=== PATIENT | female | born 1950 | race Caucasian/White ===

== ENCOUNTER → 2017-04-30 17:04 | Outpatient (CLI) | payer BC, SELFPAY ==
[2017-04-30 17:27] LABS: Basophils % 0.5 % (0.1-2.0); Eosinophils # 0.1 K/mm3 (0.0-0.4); Hematocrit 42.8 % (37.0-47.0); Hemoglobin 13.6 g/dL (12.2-16.2); Lymphocytes % 32.2 K/mm3 (10-50); Mean Corpuscular HGB Conc 31.7 g/dL (31.8-35.4); Mean Corpuscular Volume 88.2 fl (81-99); Mean Platelet Volume 7.9 fl (7.4-10.4); Monocytes # 0.3 K/mm3 (0.1-1.0); Monocytes % 4.6 % (1.7-9.3); Neutrophils # 3.8 K/mm3 (1.8-7.8); Neutrophils % 60.8 % (37.0-80.0); Platelet Count 259 K/mm3 (142-424); Red Blood Count 4.86 M/mm3 (4.20-5.40); White Blood Count 6.2 K/mm3 (4.8-10.8)
[2017-04-30 20:26] LABS: Troponin I < 0.02 ng/ml (0.00-0.06)
[2017-04-30 20:31] LABS: Alanine Aminotransferase 16 U/L (12-78); Albumin Level 3.9 gm/dL (3.4-5.0); Albumin/Globulin Ratio 1.6 (1.1-1.8); Alkaline Phosphatase 48 U/L (46-116); Anion Gap 15.1 mEq/L (5-15); Aspartate Amino Transferase 14 U/L (15-37); Bilirubin,Total 0.2 mg/dL (0.2-1.0); Blood Urea Nitrogen 19 mg/dL (7-18); Calcium 9.3 mg/dL (8.5-10.1); Carbon Dioxide 25 mmol/L (21.0-32.0); Chloride 104 mmol/L (98-107); Creatinine,Serum 0.75 mg/dL (0.55-1.02); Estimated Glomerular Filt Rate > 60 ml/min (>60); GFR (African American) > 60 ML/MIN (>60); Globulin 2.5 gm/dl (1.3-3.2); Glucose 109 mg/dL (74-106); Magnesium 1.6 mg/dL (1.4-2.2); Potassium 5.1 mmoL/L (3.5-5.1); Sodium 139 mmol/L (136-145); Thyroid Stimulating Hormone 1.41 uIU/ml (0.358-3.740); Total Protein,Serum 6.4 gm/dL (6.4-8.2)
== END ==
PROVIDERS: PCP Nurse Practitioner Family; Visit Provider Nurse Practitioner Family
DX: R06.02 Shortness of breath (principal); R53.83 Other fatigue; R94.31 Abnormal electrocardiogram [ECG] [EKG]
CPT/HCPCS: 36415; 80053; 83735; 84443; 84484; 85025

== ENCOUNTER → 2017-05-17 07:19 | Outpatient (CLI) | payer BC, SELFPAY ==
--- NOTE | 2017-05-17 07:24 | NM_ITS ---
History and Indications: Hypertension, diabetes, hyperlipidemia, family history, shortness of breath and palpitations Procedure: Patient received a 0.4 mg of Lexiscan, resting heart rate was 60 beats per, resting blood pressure 133/66, with Lexiscan maximum heart rate achieved was 95 bpm is less than 85% of the maximum predicted heart rate and a blood pressure 120/60. With Lexiscan patient under shortness of breath. Electrocardiogram: Resting electrocardiogram showed sinus rhythm, with Lexiscan there is less than 1.[address] segment depression noted from the baseline EKG. The EKG portion of the Lexiscan Myoview is nondiagnostic. Cardiac stress and resting SPECT images: Cardiac stress and resting SPECT Myoview 10.5 mCi at rest and 31.7 mCi at stress, gated SPECT further analysis of segmental wall motion and calculation of the ejection fraction also done. Cardiac stress and rest SPECT images show uniform myocardial activity without any segmental perfusion abnormality, computer derived ejection fraction over 65% with no obvious regional wall motion abnormality, right ventricle is normal size and contractility. Conclusion: 1. The EKG portion of the Lexiscan Myoview is nondiagnostic. 2. No obvious scintigraphic evidence of reversible ischemia seen, computer derived ejection fraction is over 65% normal, there is normal size and contractility.
--- NOTE | 2017-05-17 07:30 | CA_ITS ---
PROCEDURE: 2-D M-mode and color Doppler study INDICATIONS FOR THE TEST: Chest pain COPD Heart Murmur Tobacco Smoking Palpitations Fatigue Syncope Edema HypertensionXDiabetes Mellitus Rheumatic Fever SOB DOEXObesity Hyperlipidemia Family History HD Additional History DIZZINESS PATIENT INFORMATION HEIGHT: 61 WEIGHT:135 GENDER: Female B/P:133/66 2-D/M-MODE INTERPRETATION: 2-D MEASUREMENTS OBSERVED VALUES IN CMS Right Ventricular Dimension (RVDd) .9 Interventricular Septum (Thickness)(IVsd) 1.0 Left Ventricular Internal Dimensions(LVIDd) 5.0 Left Ventricular Posterior Wall (Thickness)(LVPWd) 1.0 Aortic Root 2.9 Aortic Cusp Separation 2.0 Left Atrial Dimensions (LAD) 3.5 2D 1. Left atrium is mildly enlarged, left ventricle is normal size, there is mild concentric left ventricular hypertrophy, visually estimated ejection fraction 55% with no obvious regional wall motion abnormality. 2. The right atrium and right ventricle are relatively normal size and function. 3. The aortic valve is minimally thickened and fibrosed. 4. The mitral and tricuspid valvular grossly normal. 5. The pulmonic valve is poorly visualized. 6. No significant pericardial effusion noted DOPPLER INTERROGATION: Doppler interrogation of the aortic mitral and tricuspid valvular presence of mild mitral and tricuspid regurgitation, tricuspid and jet velocity insufficient for calculation of the right ventricular systolic pressure, grade 1 diastolic dysfunction seen without tissue Doppler evidence of raised left atrial pressure. CONCLUSION: 1. Mildly enlarged left atrium, normal left ventricular size, mild qualitative concentric left ventricular hypertrophy, visually estimated ejection fraction 55% with no obvious regional wall motion abnormality, grade 1 diastolic dysfunction seen without tissue Doppler evidence of raised left atrial pressure. 2. Mild mitral and tricuspid regurgitation. 3. No significant pericardial effusion noted.
--- NOTE | 2017-05-17 09:05 | HMH.ITSHM ---
METFORMIN AMLODIPINE LOVASTATIN ASA BIOTIN VITAMIN D3 LYSINE
== END ==
PROVIDERS: Family Provider Family Medicine; PCP Nurse Practitioner Family; Visit Provider Internal Medicine
DX: R53.83 Other fatigue (principal); R06.09 Other forms of dyspnea; R42 Dizziness and giddiness; I49.8 Other specified cardiac arrhythmias; Z82.49 Family history of ischemic heart disease and other diseases of the circulatory system; R94.31 Abnormal electrocardiogram [ECG] [EKG]
CPT/HCPCS: 78452; 93017; 93306; A9502; J2785

== ENCOUNTER → 2017-07-27 09:43 | Outpatient (CLI) | payer BC, SELFPAY ==
--- NOTE | 2017-07-27 09:50 | XR_ITS ---
XR thoracic spine 3V COMPARISON: None HISTORY: Back pain TECHNIQUE: AP and lateral views and swimmer's view cervicothoracic junction FINDINGS: There is normal curvature and alignment. All thoracic vertebrae appear intact. All pedicles are intact and is no paraspinal mass. Minor multilevel degenerative changes are seen in the midthoracic spine. IMPRESSION: Minor degenerative changes, no compression fracture seen
== END ==
PROVIDERS: PCP Family Medicine; Visit Provider Nurse Practitioner Family
DX: M54.6 Pain in thoracic spine (principal)
CPT/HCPCS: 72072

== ENCOUNTER → 2019-01-09 09:46 | Outpatient (CLI) | payer MEDICARE, SELFPAY ==
--- NOTE | 2019-01-09 10:04 | US_ITS ---
PROCEDURE: US EXTREMITY LT LIMITED CLINICAL INDICATION: SWELLING Soft tissue mass left shoulder with pain COMPARISON: No exams were available for comparison FINDINGS: General survey is performed with ultrasound in the left anterior shoulder showing heterogeneous echogenicity consistent with subcutaneous fat and muscle. No discrete mass evident. The left axillary area there is a lymph node measuring approximately 3 x 2 cm. No fluid collections or mass is evident. IMPRESSION: Mildly prominent lymph node in the left axilla at 3 x 2 cm otherwise negative. If there is indeed a palpable abnormality then, MRI may be of further value. Dictated by: Solomon Wells MD 01/10/2019 07:01 Electronically signed by Solomon Wells MD in [place] 01/10/2019 07:01
== END ==
PROVIDERS: PCP Family Medicine; Referring Provider Family Medicine; Visit Provider Family Medicine
DX: R60.9 Edema, unspecified (principal); M79.89 Other specified soft tissue disorders
CPT/HCPCS: 76882

== ENCOUNTER → 2019-02-02 09:48 | Outpatient (CLI) | payer MEDICARE, SELFPAY ==
--- NOTE | 2019-02-02 09:51 | MM_ITS ---
PROCEDURE: MM DIG SCREENING MAMM BI W/CAD Patient Age:68Y CLINICAL INDICATION: SCREENING 68-year-old. 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 R2 CAD reviewed. FINDINGS: [id number] residual fibroglandular elements most evident towards the upper outer quadrant both right and left breast. Stable overall fibroglandular pattern no dominant nor new suspicious of mass but but scattered benign calcifications bilaterally similar to previous study-Can be followed.. No new areas of significant concern. Stable minimal asymmetry. Right breast no new areas of concern. left breast: MLO view demonstrates a small area density at the deep central breast which I believe is due to overlapping shadows as it seems to dissipate on CC view. Today's CC view appears unchanged since 2014 Bilateral follow-up 1 year recommended. IMPRESSION: Stable bilateral mammogram No new areas of significant concern.. . Bilateral follow-up 1 year recommended and would be encouraged BI-RAD Category: 2 Benign Finding(s) FOLLOW-UP: 1YR 1 Year Follow-up (A letter has been sent to the patient regarding results of the study.) Dictated by: Jared Galarza MD 02/03/2019 09:58 Electronically signed by Jared Galarza MD in [place] 02/03/2019 09:58
== END ==
PROVIDERS: PCP Family Medicine; Visit Provider Family Medicine
DX: Z12.31 Encounter for screening mammogram for malignant neoplasm of breast (principal)
CPT/HCPCS: 77067

== ENCOUNTER 2020-09-18 17:48 | Observation (INO) | payer MEDICARE, SELFPAY ==
[2020-09-18] VITALS (7 sets, daily range): BP systolic 145–174; BP diastolic 67–127; PULSE 65–76; RESP 16–118; TEMP 36.6–37.4; O2SAT 94–98; BMI 29.2; BMI 27.3
--- NOTE | 2020-09-18 17:51 | HMH.EDGENADL ---
ED Disposition Clinical Impression: TIA (transient ischemic attack) Disposition: Admitted as Observation Condition on Discharge: Good Referrals: Eusebio Ann PA [Primary Care Provider] - Time of Disposition: 19:53 - Critical Care Critical Care Time: No Attestation: On , the high probability of a clinically significant, sudden or life threatening deterioration of the following system(s) required my full and direct attention, intervention and personal management. The time I documented below is in addition to time spent performing reported procedures but includes the following listed in this critical care notation. Medical Decision Making - Medical Records Medical records reviewed: Yes: I reviewed the patient's medical records. - Alex Inquiry Pt receiving controlled substance: No Vital Signs: 09/18/20 17:50 09/18/20 18:39 09/18/20 19:01 Temperature 97.9 F Pulse Rate 72 Pulse Rate [Radial] 75 Respiratory Rate 16 16 Blood Pressure 154/127 H Blood Pressure [Right Arm] 163/73 H Blood Pressure Mean 133 Blood Pressure Mean [Right Arm] 103 Blood Pressure Position [Right Arm] Sitting 02 Sat by Pulse Oximetry 98 94 L Oxygen Delivery Method Room Air - Lab Data Lab Results 09/18/20 18:00: POC Glucose 109 09/18/20 18:30: Urine Color Yellow, Urine Appearance Clear, Urine pH 6.0, Ur Specific [place] 1.015, Urine Protein Negative, Urine Glucose (UA) Negative, Urine Ketones Trace, Urine Blood Trace-i, Urine Nitrate Negative, Urine Bilirubin Negative, Urine Urobilinogen 0.2, Ur Leukocyte Esterase 1+ A, Urine RBC 3-5, Urine WBC 3-5, Ur Squamous Epith Cells 3-5, Hyaline Casts 3-5 09/18/20 18:36: WBC 5.6, RBC 5.14, Hgb 14.7, Hct 44.4, MCV 86.2, MCH 28.5, MCHC 33.1, RDW 13.2, Plt Count 236, MPV 7.6, Neut % (Auto) 65.5, Lymph % (Auto) 24.8, [place] % (Auto) 5.6, Eos % (Auto) 3.1, Baso % (Auto) 1.0, Neut # (Auto) 3.7, Lymph # (Auto) 1.4, [place] # (Auto) 0.3, Eos # (Auto) 0.2, Baso # (Auto) 0.1 09/18/20 18:36: Sodium 139, Potassium 3.8, Chloride 102, Carbon Dioxide 28, Anion Gap 12.8, BUN 18 H, Creatinine 0.90, Estimated Creat Clear 63, Estimated GFR 62, Est GFR ( Amer) 76, Glucose 114 H, Calcium 10.1, Total Bilirubin 0.5, AST 30, ALT 21, Alkaline Phosphatase 66, Total Protein 8.2, Albumin 5.1 H, Globulin 3.1, Albumin/Globulin Ratio 1.6, TSH 1.87 Result diagrams: 09/18/20 18:36 09/18/20 18:36 Orders (Tests/Meds): ED MEDICATIONS Generic Name Dose Route Start Last Admin Trade Name Freq PRN Reason Stop Dose Admin Lisinopril 10 mg 09/19/20 20:19 Lisinopril 2.5mg Tablet PO 09/19/20 20:20 ONCE ONE ORDERS Category Date Time Status Covid-19 Nasal PCR ([facility]) Routine Lab 09/18/20 19:50 Received Blood Culture Stat Micro 09/18/20 18:36 Received Urine Culture Stat Micro 09/18/20 18:30 Received Medical Decision Narrative: 69yo F evaluated for sudden onset confusion. Patient in no acute distress initial evaluation. I evaluated her at bedside immediately upon arrival. Patient's NIH stroke scale on initial evaluation is 0. Routine labs are ordered and the patient is sent to CT scan for CT of the head. Patient's blood work is unremarkable. Her urinalysis is positive for leuk esterase but also positive epithelial cells, positive for red blood cells and white blood cells. For this reason I do not think the patient has urinary tract infection. She also denies any signs or symptoms of UTI. Discussed admission for further work-up of possible TIA. Patient is agreeable to this. Dr. French has been paged. Dr. French is agreeable to admit the patient this time. He request the patient receive lisinopril at this time, order an echo and MRI in the morning. General Adult HPI - General Stated complaint: loss of memory/confusion Time Seen by Provider: 09/18/20 17:51 Mode of Arrival: Ambulatory - History of Present Illness HPI narrative: 69yo F with past medical history of diabet
--- NOTE | 2020-09-18 17:52 | CT_ITS ---
PROCEDURE INFORMATION: Exam: CT Head Without Contrast Exam date and time: 09/18/2020 5:52 PM Age: 69 years old Clinical indication: Altered mental status/memory loss; Confusion or disorientation TECHNIQUE: Imaging protocol: Computed tomography of the head without contrast. Radiation optimization: All CT scans at this facility use at least one of these dose optimization techniques: automated exposure control; mA and/or kV adjustment per patient size (includes targeted exams where dose is matched to clinical indication); or iterative reconstruction. COMPARISON: No relevant prior studies available. FINDINGS: Brain: No acute intracranial findings. No intracranial hemorrhage. No edema, swelling or mass-effect. No significant white matter disease. Cerebral ventricles: The ventricles are normal for age. No hydrocephalus. Paranasal sinuses: No acute findings in the visualized sinuses. No significant sinus opacification or air-fluid levels. Minimal ethmoid mucosal thickening. Right middle turbinate ralph bullosa noted. Mastoid air cells: Mastoids are unremarkable as visualized, no effusions. Vasculature: A few calcified atherosclerotic plaques in the intracranial carotid arteries. Bones/joints: No acute skull fracture. No lytic lesions. Soft tissues: There are no soft tissue masses or fluid collections. IMPRESSION: 1. No acute findings. 2. There is no CT evidence of mass, intracranial hemorrhage, or acute infarct. 3. Minimal senescent changes and non emergency findings as above.
--- NOTE | 2020-09-18 18:04 | XR_ITS ---
PROCEDURE INFORMATION: Exam: XR Chest Exam date and time: 09/18/2020 6:04 PM Age: 69 years old Clinical indication: Other: Confusion; Additional info: AMS TECHNIQUE: Imaging protocol: XR of the chest. Views: 1 view. Portable AP supine exam 6:14 p.m. COMPARISON: No relevant prior studies available. FINDINGS: Lungs: No acute pulmonary findings. No pulmonary consolidation. Lung volumes within normal limits. Pleural spaces: Unremarkable. No significant pleural effusion. No pneumothorax. Heart/Mediastinum: The cardiac silhouette is normal. Bones/joints: Spinal degenerative changes. IMPRESSION: No acute findings.
[2020-09-18 18:09] LABS: POC Glucose,Bedside 109 (70-110)
[2020-09-18 18:50] LABS: Basophils # 0.1 K/mm3 (0-0.2); Eosinophils # 0.2 K/mm3 (0.0-0.4); Eosinophils % 3.1 % (0.1-12.0); Hematocrit 44.4 % (37.0-47.0); Hemoglobin 14.7 g/dL (12.2-16.2); Lymphocytes # 1.4 K/mm3 (0.7-4.5); Lymphocytes % 24.8 % (10-50); Mean Corpuscular HGB Conc 33.1 g/dL (31.8-35.4); Mean Corpuscular Hemoglobin 28.5 pg (27.0-31.2); Mean Corpuscular Volume 86.2 fl (81-99); Mean Platelet Volume 7.6 fl (7.4-10.4); Monocytes # 0.3 K/mm3 (0.1-1.0); Monocytes % 5.6 % (1.7-9.3); Neutrophils # 3.7 K/mm3 (1.8-7.8); Neutrophils % 65.5 % (37.0-80.0); Platelet Count 236 K/mm3 (142-424); Red Blood Count 5.14 M/mm3 (4.20-5.40); Red Cell Distribution Width 13.2 % (11.5-17.5); White Blood Count 5.6 K/mm3 (4.8-10.8)
[2020-09-18 18:50] LABS: Microscopic, Urine URINE MICROSCOPIC (MICROSCOPIC)
[2020-09-18 18:52] LABS: Chloride 102 mmol/L (98-107); Potassium 3.8 mmoL/L (3.5-5.1); Sodium 139 mmol/L (136-145)
[2020-09-18 18:53] LABS: Appearance,Urine CLEAR (Clear); Bilirubin,Urine Negative (Negative); Blood, Urine TRACE-I (Negative); Color,Urine YELLOW (Yellow); Glucose,Urine (UA) Negative (Negative); Ketones,Urine TRACE (Negative); Leukocyte Esterase,Urine 1+ (Negative); Nitrate,Urine Negative (Negative); Protein,Urine Negative (Negative); Specific Gravity, Urine 1.015 (1.005-1.030); Urobilinogen,Urine 0.2 EU/dl (0.2)
[2020-09-18 18:54] LABS: Blood Urea Nitrogen 18 mg/dl (7-17); Creatinine Clearance Estimated 63 mL/min (50-200); Estimated Glomerular Filt Rate 62 ml/min (>60); GFR (African American) 76 ML/MIN (>60)
[2020-09-18 18:55] LABS: Alanine Aminotransferase 21 U/L (12-78); Albumin Level 5.1 g/dl (3.5-5.0); Albumin/Globulin Ratio 1.6 (1.1-1.8); Alkaline Phosphatase 66 U/L (38-126); Anion Gap 12.8 mEq/L (5-15); Aspartate Amino Transferase 30 U/L (14-36); Bilirubin,Total 0.5 mg/dl (0.2-1.3); Calcium 10.1 mg/dl (8.4-10.2); Carbon Dioxide 28 mmol/L (22.0-30.0); Globulin 3.1 g/dL (1.3-3.2); Glucose 114 mg/dl (74-100); Total Protein,Serum 8.2 g/dl (6.3-8.2)
--- NOTE | 2020-09-18 18:55 | ECG_ITS ---
APPROVED REPORT Exam: Resting ECG HR:64 bpm ECG Measurements Heart Rate 64 AXES TX 160 P 53 QRSd 92 QRS -14 QT 408 T 68 QTc 420 Conclusion Normal sinus rhythm Possible Left atrial enlargement Late r wave progression Abnormal ECG Electronically signed by : Steven French, 09/21/2020 07:31:54
[2020-09-18 19:26] LABS: Thyroid Stimulating Hormone 1.87 uIU/mL (0.465-4.68)
--- NOTE | 2020-09-18 19:53 | PC.NURSE ---
Pt up to bathroom. Denies any dizziness, lightheadness at this time. Pt back to baseline.
--- NOTE | 2020-09-18 19:55 | PC.NURSE ---
Dr. Manolo gamboa
--- NOTE | 2020-09-18 19:59 | PC.NURSE ---
2nd page out to dr. mares at this time.
--- NOTE | 2020-09-18 20:16 | PC.NURSE ---
speaking to dr mares at this time.
--- NOTE | 2020-09-18 20:24 | PC.NURSE ---
Notified house of admission
--- NOTE | 2020-09-18 20:45 | PC.NURSE ---
PT ARRIVED TO FLOOR VIA W/C FROM ED W/STAFF AT 2043
[2020-09-18 22:13] LABS: POC Glucose,Bedside 144 (70-110)
[2020-09-19 04:00] VITALS: BP 142/74; PULSE 64; RESP 20; TEMP 36.8; O2SAT 98
[2020-09-19 05:00] VITALS: BMI 27.1
[2020-09-19 05:44] LABS: POC Glucose,Bedside 112 (70-110)
--- NOTE | 2020-09-19 07:30 | HMH.PHAVTE ---
[facility] Pharmacy VTE Monitoring - Patient Demographics Admission date: 09/18/20 Report Date: 09/19/20 Time: 07:30 Allergies/Adverse Reactions: Patient Allergies acetaminophen [From Tylenol-Codeine #3] Allergy (Mild, Verified 09/18/20 21:09) Fainting codeine [From Tylenol-Codeine #3] Allergy (Mild, Verified 09/18/20 21:09) Fainting No Known Drug Allergies Allergy (Unknown, Verified 02/23/20 13:15) NONE Height: 1.57 m Weight: 67.358 kg Patient Problems: Current Active Problems TIA (transient ischemic attack) (Acute) - VTE Risk Labs: VTE Related Lab Results Hgb 14.7 g/dL (12.2-16.2) 09/18/20 18:36 Hct 44.4 % (37.0-47.0) 09/18/20 18:36 Plt Count 236 K/mm3 (142-424) 09/18/20 18:36 BUN 18 mg/dl (7-17) H 09/18/20 18:36 Creatinine 0.90 mg/dl (0.52-1.04) 09/18/20 18:36 Estimated Creat Clear 63 mL/min (50-200) 09/18/20 18:36 VTE Score: 2 VTE Risk Level: Very Low Risk - Prophylaxis VTE Prophylaxis Ordered?: Yes Types of VTE Prophylaxis: IPCS Thigh High Location of Applied Device: Bilateral Lower Extremeties
--- NOTE | 2020-09-19 07:34 | MR_ITS ---
PROCEDURE: MR HEAD/BRAIN WO CON CLINICAL INDICATION: TIA Short-term memory loss COMPARISON: CT CT HEAD/BRAIN WO CON from 09/18/2020 TECHNIQUE: Routine multiplanar multi echo sequences are performed without gadolinium enhancement. FINDINGS: No midline shift, mass effect, intracranial hemorrhage, or hydrocephalus is evident. No evidence of acute infarction. No restricted diffusion. The cerebellopontine angles, cerebellum, and brainstem have an unremarkable appearance. The pituitary, optic chiasm, corpus callosum, the and craniocervical junction are unremarkable. There is minimal periventricular T2 white matter hyperintensity consistent with minimal senescent changes. Minimal amount fluid noted in the left mastoid sinus. No paranasal sinus air-fluid level apparent.. IMPRESSION: No acute intracranial findings. No evidence of acute infarction. Dictated by: Solomon Wells MD 09/19/2020 10:32 Solomon Wells MD in [place] 09/19/2020 10:32
[2020-09-19 08:00] VITALS: BP 156/68; PULSE 75; RESP 18; TEMP 36.6; O2SAT 97
[2020-09-19 08:00] LABS: Basophils # 0.1 K/mm3 (0-0.2); Basophils % 0.8 % (0.1-2.0); Eosinophils # 0.2 K/mm3 (0.0-0.4); Eosinophils % 3.5 % (0.1-12.0); Hematocrit 40.9 % (37.0-47.0); Hemoglobin 13.8 g/dL (12.2-16.2); Lymphocytes # 1.5 K/mm3 (0.7-4.5); Lymphocytes % 25.2 % (10-50); Mean Corpuscular HGB Conc 33.7 g/dL (31.8-35.4); Mean Corpuscular Hemoglobin 29.3 pg (27.0-31.2); Mean Corpuscular Volume 86.8 fl (81-99); Mean Platelet Volume 7.8 fl (7.4-10.4); Monocytes # 0.4 K/mm3 (0.1-1.0); Monocytes % 6.2 % (1.7-9.3); Neutrophils # 3.7 K/mm3 (1.8-7.8); Neutrophils % 64.2 % (37.0-80.0); Platelet Count 218 K/mm3 (142-424); Red Blood Count 4.72 M/mm3 (4.20-5.40); Red Cell Distribution Width 13.2 % (11.5-17.5); White Blood Count 5.8 K/mm3 (4.8-10.8)
--- NOTE | 2020-09-19 08:00 | HMH.PHAINT ---
MEDICATION RECONCILIATION COMPLETED ON PATIENT USING EXTERNAL FILL HISTORY FROM PHARMACY. -KENDALL LEIVA, TONYAD
[2020-09-19 08:43] LABS: Blood Urea Nitrogen 16 mg/dl (7-17); Carbon Dioxide 26 mmol/L (22.0-30.0); Chloride 106 mmol/L (98-107); Creatinine Clearance Estimated 58 mL/min (50-200); Estimated Glomerular Filt Rate 72 ml/min (>60); GFR (African American) 87 ML/MIN (>60); Glucose 163 mg/dl (74-100); Sodium 138 mmol/L (136-145)
[2020-09-19 08:50] VITALS: PULSE 60
[2020-09-19 11:40] LABS: POC Glucose,Bedside 270 (70-110)
--- NOTE | 2020-09-19 13:25 | HMH.HPDC ---
General - General Admission date:: 09/18/20 Discharge date: 09/19/20 *Admission Date: 09/18/20 *Chief complaint: Presyncope episode *History of present illness: 69yo F with past medical history of diabetes reports the emergency department secondary to sudden onset confusion and memory loss. Patient reports symptoms developed approximately an hour prior to arrival but at bedside states he last observe the patient around 3 PM. Patient denies any focal deficits, she denies any headache, visual change, nausea or vomiting. She denies any previous episodes similar to this. The only abnormality to her today is that she has not eaten since breakfast. She reports she was not hungry but denies any pain. Above note per emergency department physician. Agreed to admit the patient overnight for serial neurologic checks and diagnostic testing. [facility] History I have reviewed the patient's past medical history: Yes Medical History: Reports:: Diabetes Mellitus Type 2, Gastroesophageal Reflux Disease(GERD), Hyperlipidemia, Hypertension Denies:: Cancer, Diabetes Mellitus Type 1, Internal Pacemaker, MRSA, Seizures *Have you ever received a pneumonia vaccine?: No *Have you received a flu vaccine this season?: No Laterality Cases: Left: Arthroscopy Shoulder, Bilateral: Myringotomy (Ear Tubes), Other Other Surgeries: Yes: Cholecystectomy, Colonoscopy, Tubal Ligation, Other. No: Pacemaker Amputation: No Fractures: Yes (RIB) - *Social History Last grade of school completed: GED Smoking Status: Never smoker Alcohol Intake: never Alcohol Intake Frequency:: other Substance Use Type: denies use *Occupational Status:: retired Housing: house Household Members: spouse *Travel in the last 8 weeks: None Family Hx:: Non-contributory Review of Systems - Review of Systems Review of systems:: pertinent systems reviewed and negative unless documented below Exam Vital signs and Labs for Last 24 Hours: Temp Pulse Resp BP Pulse Ox 97.8 F 60 18 156/68 H 97 09/19/20 08:00 09/19/20 08:50 09/19/20 08:00 09/19/20 08:00 09/19/20 08:00 Laboratory Results - last 24 hr 09/18/20 18:00: POC Glucose 109 09/18/20 18:30: Urine Color Yellow, Urine Appearance Clear, Urine pH 6.0, Ur Specific [place] 1.015, Urine Protein Negative, Urine Glucose (UA) Negative, Urine Ketones Trace, Urine Blood Trace-i, Urine Nitrate Negative, Urine Bilirubin Negative, Urine Urobilinogen 0.2, Ur Leukocyte Esterase 1+ A, Urine RBC 3-5, Urine WBC 3-5, Ur Squamous Epith Cells 3-5, Hyaline Casts 3-5 09/18/20 18:36: WBC 5.6, RBC 5.14, Hgb 14.7, Hct 44.4, MCV 86.2, MCH 28.5, MCHC 33.1, RDW 13.2, Plt Count 236, MPV 7.6, Neut % (Auto) 65.5, Lymph % (Auto) 24.8, [place] % (Auto) 5.6, Eos % (Auto) 3.1, Baso % (Auto) 1.0, Neut # (Auto) 3.7, Lymph # (Auto) 1.4, [place] # (Auto) 0.3, Eos # (Auto) 0.2, Baso # (Auto) 0.1 09/18/20 18:36: Sodium 139, Potassium 3.8, Chloride 102, Carbon Dioxide 28, Anion Gap 12.8, BUN 18 H, Creatinine 0.90, Estimated Creat Clear 63, Estimated GFR 62, Est GFR ( Amer) 76, Glucose 114 H, Calcium 10.1, Total Bilirubin 0.5, AST 30, ALT 21, Alkaline Phosphatase 66, Total Protein 8.2, Albumin 5.1 H, Globulin 3.1, Albumin/Globulin Ratio 1.6, TSH 1.87 09/18/20 22:05: POC Glucose 144 H 09/19/20 05:35: POC Glucose 112 H 09/19/20 07:55: WBC 5.8, RBC 4.72, Hgb 13.8, Hct 40.9, MCV 86.8, MCH 29.3, MCHC 33.7, RDW 13.2, Plt Count 218, MPV 7.8, Neut % (Auto) 64.2, Lymph % (Auto) 25.2, [place] % (Auto) 6.2, Eos % (Auto) 3.5, Baso % (Auto) 0.8, Neut # (Auto) 3.7, Lymph # (Auto) 1.5, [place] # (Auto) 0.4, Eos # (Auto) 0.2, Baso # (Auto) 0.1 09/19/20 07:55: Sodium 138, Potassium 4.0, Chloride 106, Carbon Dioxide 26, Anion Gap 10.0, BUN 16, Creatinine 0.80, Estimated Creat Clear 58, Estimated GFR 72, Est GFR ( Amer) 87, Glucose 163 H D, Calcium 9.0 D 09/19/20 11:23: POC Glucose 270 H I & O for Last 24 hours: Intake & Output 09/17/20 09/18/20 09/19/20 09/20/20 11:59 11:59 11
--- NOTE | 2020-09-19 20:24 | CA_ITS ---
APPROVED REPORT EXAM: Comprehensive 2D, Doppler, and color-flow Echocardiogram Customer Solutions Coordinator: Inés Crawford CRT Ht: 5 ft 2 in Wt: 160lbs BSA: 1.74 BP: 163/73 mmHg Indications: Shortness of Breath, CVA/TIA, Diabetes, Hyperlipidemia, Hypertension/HDD, gerd, DNR 2D Dimensions LVOT 1.94 cm (M/F) 1.5-2.5 LA Volume 47.20 mL LA Volume Index 27.10 mL/m2 (M/F) 16-34 M-Mode Dimensions RVDd 2.63 cm (0.9-2.6) LA Diam 3.21 cm (1.9-4.0) LVDd 3.60 cm (3.5-5.7) Ao Diam 3.63 cm (2.0-3.7) LVDs 2.34 cm (3.5-5.7) IVSd 1.73 cm (0.6-1.1) PWd 0.83 cm (0.6-1.1) EF (Teich) 65.30% FS 35.00% EDV (Teich) 54.40 mL TAPSE 2.02 (<1.7) ESV (Teich) 18.90 mL LV Diastology MED E' 7.00 (< 7 cm/sec) MED A' 9.20 cm/s LAT E' 8.40 (<10 cm/sec) LAT A' 12.60 cm/s Aortic Valve AO Peak GR. 5.00 mmHg Pulmonary Valve PV Peak Velocity 85.00 (50-150 cm/s) Tricuspid Valve TR P. Velocity 173.00 cm/s RAP Estimate 10.00 mmHg RVSP 21.90 mmHg Left Ventricle Left atrium is mildly enlarged, left ventricle is normal size, mild concentric left ventricular hypertrophy, visually estimated ejection fraction 55% with no regional wall motion abnormality, grade 1 diastolic dysfunction seen without tissue Doppler evidence of raise left atrial pressure. Right Ventricle Right atrium and right ventricle are normal size and contractility. Aortic Valve Aortic valve is minimally thickened and fibrosed, there is no aortic stenosis or aortic insufficiency. Mitral Valve Mitral valve is grossly normal, there is trace mitral regurgitation. Tricuspid Valve Tricuspid grossly normal, there is trace tricuspid regurgitation, tricuspid regurgitation jet velocity is inadequate for calculation of the right ventricular systolic pressure. Pulmonic Valve Pulmonic valve is poorly visualized. Great Vessels Aortic root is normal size. Pericardium No significant pericardial effusion noted. Conclusion 1. Mildly enlarged left atrium, normal left ventricular size, mild concentric left ventricular hypertrophy, visually estimated ejection fraction 55% with no regional wall motion abnormality, grade 1 diastolic dysfunction seen without tissue Doppler evidence of raise left atrial pressure. 2. Trace mitral and tricuspid regurgitation. 3. No significant pericardial effusion noted. Electronically signed by : Jonatan Roberson, 09/20/2020 10:43:13
== END 2020-09-19 15:18 | disposition home or self-care (01) ==
LOC: ER 19:53 → 2ND 20:35
PROVIDERS: Admitting Provider Internal Medicine Adolescent Medicine; Emergency Provider Family Medicine; PCP Physician Assistant; Visit Provider Internal Medicine Adolescent Medicine
DX: G45.9 Transient cerebral ischemic attack, unspecified (principal); E11.9 Type 2 diabetes mellitus without complications; I10 Essential (primary) hypertension; Z79.899 Other long term (current) drug therapy
CPT/HCPCS: 36415; 70450; 70551; 71045; 80048; 80053; 81001; 82962; 84443; 85025; 87040; 87086; 93005; 93306; 99284; G0378; U0003

== ENCOUNTER → 2020-11-13 10:02 | Outpatient (CLI) | payer MEDICARE, SELFPAY ==
[2020-11-13 11:20] LABS: Alanine Aminotransferase 14 U/L (12-78); Albumin Level 4.3 g/dl (3.5-5.0); Albumin/Globulin Ratio 1.8 (1.1-1.8); Alkaline Phosphatase 56 U/L (38-126); Anion Gap 13.4 mEq/L (5-15); Aspartate Amino Transferase 19 U/L (14-36); Bilirubin,Total 0.5 mg/dl (0.2-1.3); Blood Urea Nitrogen 17 mg/dl (7-17); Calcium 9.2 mg/dl (8.4-10.2); Carbon Dioxide 26 mmol/L (22.0-30.0); Chloride 105 mmol/L (98-107); Chol/HDL Ratio 4.1 (1-3.5); Cholesterol 217 mg/dl (140-200); Estimated Glomerular Filt Rate 62 ml/min (>60); GFR (African American) 76 ML/MIN (>60); Globulin 2.4 g/dL (1.3-3.2); Glucose 213 mg/dl (74-100); HDL Cholesterol 53 mg/dl (40-60); Potassium 4.4 mmoL/L (3.5-5.1); Sodium 140 mmol/L (136-145); Total Protein,Serum 6.7 g/dl (6.3-8.2); Triglycerides 163 mg/dl (30-150); VLDL Cholesterol 33 mg/dL (0-40)
[2020-11-13 11:31] LABS: Hemoglobin A1C 8.1 % (4.0-6.0)
[2020-11-13 11:53] LABS: Thyroid Stimulating Hormone 1.24 uIU/mL (0.465-4.68)
[2020-11-13 12:28] LABS: Basophils # 0.1 K/mm3 (0-0.2); Basophils % 0.8 % (0.1-2.0); Eosinophils # 0.1 K/mm3 (0.0-0.4); Hematocrit 42.1 % (37.0-47.0); Hemoglobin 14.4 g/dL (12.2-16.2); Lymphocytes # 1.6 K/mm3 (0.7-4.5); Lymphocytes % 25.1 % (10-50); Mean Corpuscular HGB Conc 34.2 g/dL (31.8-35.4); Mean Corpuscular Hemoglobin 29.3 pg (27.0-31.2); Mean Corpuscular Volume 85.6 fl (81-99); Mean Platelet Volume 8.4 fl (7.4-10.4); Monocytes # 0.3 K/mm3 (0.1-1.0); Monocytes % 4.4 % (1.7-9.3); Neutrophils # 4.3 K/mm3 (1.8-7.8); Neutrophils % 67.8 % (37.0-80.0); Platelet Count 211 K/mm3 (142-424); Red Blood Count 4.91 M/mm3 (4.20-5.40); Red Cell Distribution Width 13.5 % (11.5-17.5); White Blood Count 6.3 K/mm3 (4.8-10.8)
[2020-11-13 16:43] LABS: Direct LDL Cholesterol 124.23 mg/dL (100-129)
== END ==
PROVIDERS: Visit Provider Internal Medicine Adolescent Medicine
DX: E11.9 Type 2 diabetes mellitus without complications (principal); G45.9 Transient cerebral ischemic attack, unspecified; Z79.84 Long term (current) use of oral hypoglycemic drugs
CPT/HCPCS: 36415; 80053; 80061; 83036; 84443; 85025

== ENCOUNTER → 2021-01-28 16:10 | Outpatient (CLI) | payer MEDICARE, SELFPAY ==
--- NOTE | 2021-01-28 16:11 | MM_ITS ---
PROCEDURE: MM DIG SCREENING MAMM BI W/CAD Digital Breast Tomosynthesis Included CLINICAL INDICATION: Routine Screening Mammogram There is no personal or family history of breast cancer. COMPARISON: MG DMSB DIG MAMM-SCREEN EMELIA W/CAD from 04/08/2017 MG MM DIG SCREENING MAMM BI W/CAD from 02/02/2019 TECHNIQUE: Standard CC and MLO images and 3D Tomosynthesis was obtained. R2 CAD reviewed. FINDINGS: Scattered diffuse fibroglandular densities are seen throughout both breast and the findings are bilateral and symmetrical. There are scattered benign-appearing microcalcifications in each breast. CAD markings were reviewed and they appear to be secondary to benign-appearing calcifications. There is no suspicious lesion and no suspicious microcalcifications. IMPRESSION: Fibrofatty parenchyma with no suspicious lesions seen BI-RAD Category: 2 Benign Finding(s) FOLLOW-UP: 1YR 1 Year Follow-up (A letter has been sent to the patient regarding results of the study.) Dictated by: Dr. Bj Botello MD 01/31/2021 15:15 Dr. Bj Botello MD in [place] 01/31/2021 15:15
== END ==
PROVIDERS: PCP Internal Medicine Adolescent Medicine; Visit Provider Nurse Practitioner Obstetrics & Gynecology
DX: Z12.31 Encounter for screening mammogram for malignant neoplasm of breast (principal)
CPT/HCPCS: 77063; 77067

== ENCOUNTER → 2021-02-19 10:42 | Outpatient (CLI) | payer MEDICARE, SELFPAY ==
[2021-02-19 10:45] LABS: Microscopic, Urine URINE MICROSCOPIC (MICROSCOPIC)
[2021-02-19 11:45] LABS: Appearance,Urine SL CLOUDY (Clear); Bilirubin,Urine Negative (Negative); Blood, Urine 2+ (Negative); Color,Urine YELLOW (Yellow); Glucose,Urine (UA) 3+ (Negative); Ketones,Urine TRACE (Negative); Leukocyte Esterase,Urine TRACE (Negative); Nitrate,Urine Negative (Negative); PH,Urine 5.5 (5.0-8.5); Protein,Urine Negative (Negative); Specific Gravity, Urine 1.025 (1.005-1.030); Urobilinogen,Urine 0.2 EU/dl (0.2)
[2021-02-19 12:29] LABS: Bacteria,Urine Trace /lpf
[2021-02-19 14:36] LABS: Hemoglobin A1C 9.9 % (4.0-6.0)
[2021-02-19 16:57] LABS: Alanine Aminotransferase 13 U/L (12-78); Albumin Level 4.4 g/dl (3.5-5.0); Albumin/Globulin Ratio 1.6 (1.1-1.8); Alkaline Phosphatase 62 U/L (38-126); Anion Gap 13.6 mEq/L (5-15); Aspartate Amino Transferase 22 U/L (14-36); Bilirubin,Total 0.4 mg/dl (0.2-1.3); Blood Urea Nitrogen 19 mg/dl (7-17); Calcium 9.5 mg/dl (8.4-10.2); Carbon Dioxide 24 mmol/L (22.0-30.0); Chloride 105 mmol/L (98-107); Estimated Glomerular Filt Rate 71 ml/min (>60); GFR (African American) 86 ML/MIN (>60); Globulin 2.8 g/dL (1.3-3.2); Glucose 256 mg/dl (74-100); Potassium 4.6 mmoL/L (3.5-5.1); Sodium 138 mmol/L (136-145); Total Protein,Serum 7.2 g/dl (6.3-8.2)
== END ==
PROVIDERS: Visit Provider Internal Medicine Adolescent Medicine
DX: I10 Essential (primary) hypertension (principal); E11.9 Type 2 diabetes mellitus without complications; Z79.84 Long term (current) use of oral hypoglycemic drugs
CPT/HCPCS: 36415; 80053; 81001; 83036

== ENCOUNTER 2022-08-08 12:33 | Emergency (ER) | payer MEDICARE, SELFPAY ==
[2022-08-08 12:43] VITALS: BP 169/79; PULSE 70; RESP 16; TEMP 37.2; O2SAT 99; BMI 30.2
--- NOTE | 2022-08-08 12:56 | HMH.EDGENADL ---
Discharge Plan Disposition Patient Disposition: Still a Patient Condition: Good Prescriptions Prescriptions: New cefdinir 300 mg capsule 300 mg PO BID 10 Days Qty: 20 0RF No Action aspirin [Adult Low Dose Aspirin] 81 mg tablet,delayed release (DR/EC) 81 mg PO DAILY lovastatin 40 mg tablet 40 mg PO DAILY (DME) lancets [OneTouch Delica Plus Lancet] 30 gauge misc See Rx Instructions .ROUTE .MEDSUPPLY Qty: 100 Rx Instructions: As directed Farxiga 10 mg tablet 10 mg PO (DME) OneTouch Verio test strips Strip See Rx Instructions .ROUTE .MEDSUPPLY Qty: 10 Rx Instructions: As directed calcium carbonate [Calcium 600] 600 mg calcium (1,500 mg) tablet 600 mg PO DAILY cholecalciferol (vitamin D3) 10 mcg (400 unit) capsule 10 mcg PO DAILY glimepiride 4 MG tablet 8 mg PO DAILY amlodipine-benazepril 1 EACH capsule 1 each PO DAILY exenatide microspheres 2 MG/0.85 ML auto-injector 2 mg SQ WEEKLY Referrals Follow up/Referrals: Steven French MD [Primary Care Provider] - See instructions Activity Restrictions/Add. Instructions Additional Instructions/Restrictions: Please follow-up with your primary care doctor in 2 to 3 days to follow-up on your urine culture results as the empiric antibiotic to be started today may have resistance. Return to the emergency part with any high fevers or other symptoms that you are concerned about. Your CT scan did not show any acute abnormalities. Clinical Impressions Clinical Impression: Back pain, Pyelonephritis Discharge ED Provider: Chaitanya Ramachandran General Adult HPI <Chaitanya Ramachandran MD - Last Filed: 08/08/22 13:07> General Chief complaint: PAIN Stated complaint: RT side Back pain no accident Time Seen by Provider: 08/08/22 12:48 Mode of Arrival: Ambulatory Source of Information: Patient Limitations: No Limitations Description of Symptoms (Recalled from ER Triage Doc. by RN): pt comes in with c/o pain in back and right side. pt reports that pain began sometime last week. but pain started in middle of back but has now moved to right side. History of Present Illness HPI narrative: Patient is a 71-year-old female with past medical history of insulin-dependent diabetes, hypertension who presents to the emergency department for evaluation of back pain. Originally patient had left-sided back pain, mid back radiating around to the left side approximately 1 week ago which spontaneously resolved. Patient has had resurgence of back pain however now it is right-sided paraspinal, wrapping around in a bandlike distribution into the inferior aspect of her thoracic cage. Patient has no associated dysuria. Afebrile. Denies abdominal pain, chest pain, significant cough, vomiting, weakness in extremities. No other acute complaints at this time. Related Data Home Medications Medication Instructions Recorded Confirmed aspirin 81 mg tablet,delayed 81 mg PO DAILY HEART SIERRA 05/05/17 02/04/21 release (Adult Low Dose Aspirin) lovastatin 40 mg tablet 40 mg PO DAILY Cholesterol 05/06/17 02/04/21 amlodipine 5 mg-benazepril 40 mg 1 each PO DAILY Hypertension 09/19/20 02/04/21 capsule exenatide microspheres 2 mg/0.85 2 mg SQ WEEKLY Diabetes 09/19/20 02/04/21 mL subcutaneous auto-injector glimepiride 4 mg tablet 8 mg PO DAILY Diabetes 09/19/20 02/04/21 blood sugar diagnostic (Much[facility]uch #10 ea 01/20/21 02/04/21 Verio test strips) calcium carbonate 600 mg calcium 600 mg PO DAILY 01/20/21 02/04/21 (1,500 mg) tablet (Calcium) cholecalciferol (vitamin D3) 10 10 mcg PO DAILY 01/20/21 02/04/21 mcg (400 unit) capsule dapagliflozin 10 mg tablet 10 mg PO 01/20/21 02/04/21 (Farxiga) lancets 30 gauge ([facility] 01/20/21 02/04/21 Plus Lancet) Previous Rx's Medication Instructions Recorded cefdinir 300 mg capsule 300 mg PO BID 10 days #20 caps 08/08/22 Allergies Allergy/AdvReac Type Maty
[2022-08-08 13:03] LABS: POC Glucose,Bedside 203 (70-110)
--- NOTE | 2022-08-08 13:23 | PC.NURSE ---
rounded on pt no complaints at this time
[2022-08-08 13:33] LABS: Appearance,Urine CLEAR (Clear); Bilirubin,Urine Negative (Negative); Blood, Urine TRACE-I (Negative); Color,Urine YELLOW (Yellow); Glucose,Urine (UA) TRACE (Negative); Ketones,Urine Negative (Negative); Leukocyte Esterase,Urine 1+ (Negative); Microscopic, Urine URINE MICROSCOPIC (MICROSCOPIC); Nitrate,Urine Negative (Negative); Protein,Urine Negative (Negative); Specific Gravity, Urine >= 1.030 (1.005-1.030); Urobilinogen,Urine 0.2 EU/dl (0.2)
--- NOTE | 2022-08-08 13:46 | CT_ITS ---
PROCEDURE INFORMATION: Exam: CT Abdomen And Pelvis Without Contrast Exam date and time: 08/08/2022 1:58 PM Age: 71 years old Clinical indication: Abdominal pain; Flank; Right; Additional info: Right flank pain TECHNIQUE: Imaging protocol: Computed tomography of the abdomen and pelvis without contrast. Radiation optimization: All CT scans at this facility use at least one of these dose optimization techniques: automated exposure control; mA and/or kV adjustment per patient size (includes targeted exams where dose is matched to clinical indication); or iterative reconstruction. REPORTING DATA: Count of CT and Cardiac NM exams in prior 12 months: This patient has received 0 known CTs and 0 known cardiac nuclear medicine studies in the 12 months prior to the current study. COMPARISON: CR XR CHEST PORTABLE 09/18/2020 6:13 PM FINDINGS: Tubes, catheters and devices: Pessary grossly in place. Liver: Normal. No mass. Gallbladder and bile ducts: Nonvisualized. Pancreas: Normal. No ductal dilation. Spleen: Incidental calcified splenic granulomata. Adrenal glands: Normal. No mass. Kidneys and ureters: Normal. No hydronephrosis. Stomach and bowel: Unremarkable. No obstruction. No mucosal thickening. Appendix: No evidence of appendicitis. Intraperitoneal space: Unremarkable. No free air. No significant fluid collection. Vasculature: Atherosclerotic calcification of aortoiliac arteries. Lymph nodes: Unremarkable. No enlarged lymph nodes. Urinary bladder: Unremarkable as visualized. Reproductive: Unremarkable as visualized. Bones/joints: Unremarkable. No acute fracture. Soft tissues: Anterior pelvic wall defect with fat herniation only. Defect measures 3.5 cm. IMPRESSION: 1. No nephroureterolithiasis or hydroureter identified. 2. Anterior pelvic wall defect with fat herniation only.
[2022-08-08 14:09] LABS: Bacteria,Urine Trace /lpf; RBC,Urine Occasional #/hpf (0-3); Squamous Epithelial Cell,Urine Occasional #/hpf (0-5)
[2022-08-08 14:34] VITALS: BP 144/66; PULSE 60; O2SAT 97
[2022-08-08 15:00] VITALS: BP 146/68; PULSE 56; RESP 17; O2SAT 97
--- NOTE | 2022-08-08 15:13 | PC.NURSE ---
Rounded on patient. Patient needed to go to the bathroom. Assisted patient out of bed. Patient ambulated to bathroom.
[2022-08-08 15:18] VITALS: BP 146/68; PULSE 62; RESP 16; TEMP 36.6
== END 2022-08-08 15:19 | disposition still patient (30) ==
PROVIDERS: Emergency Provider Emergency Medicine; PCP Internal Medicine Adolescent Medicine
DX: N12 Tubulo-interstitial nephritis, not specified as acute or chronic (principal)
CPT/HCPCS: 74176; 76705; 81001; 82962; 87086; 99285

== ENCOUNTER → 2022-10-16 12:46 | Outpatient (CLI) | payer MEDICARE, SELFPAY ==
--- NOTE | 2022-10-16 12:58 | XR_ITS ---
FINAL REPORT CLINICAL HISTORY: DIABETES MELLITUS TYPE 2 NONOBESE, left foot COMPARISON: None FINDINGS: LEFT FOOT Three views of the left foot demonstrate no acute fracture or dislocation. The visualized joint spaces are normally aligned. Small plantar spur is present. The soft tissues are unremarkable. IMPRESSION: No acute bony abnormality. Reviewed, Interpreted and Dictated by Arsalan Syed MD Transcribed by Amber Carroll Authenticated and . [facility]
[2022-10-16 14:42] LABS: Hemoglobin A1C 7.1 % (4.0-6.0)
[2022-10-16 14:53] LABS: Alanine Aminotransferase 20 U/L (12-78); Albumin Level 4.5 g/dl (3.5-5.0); Alkaline Phosphatase 50 U/L (38-126); Anion Gap 13.9 mEq/L (5-15); Aspartate Amino Transferase 27 U/L (14-36); Bilirubin,Total 0.3 mg/dl (0.2-1.3); Blood Urea Nitrogen 18 mg/dl (7-17); Calcium 9.7 mg/dl (8.4-10.2); Carbon Dioxide 31 mmol/L (22.0-30.0); Chloride 103 mmol/L (98-107); Estimated Glomerular Filt Rate 49 ml/min (>60); GFR (African American) 60 ML/MIN (>60); Globulin 2.3 g/dL (1.3-3.2); Glucose 70 mg/dl (74-100); Potassium 3.9 mmoL/L (3.5-5.1); Sodium 144 mmol/L (136-145); Total Protein,Serum 6.8 g/dl (6.3-8.2)
== END ==
PROVIDERS: PCP Internal Medicine Adolescent Medicine; Visit Provider Nurse Practitioner Family
DX: M79.672 Pain in left foot (principal); M79.89 Other specified soft tissue disorders; E11.9 Type 2 diabetes mellitus without complications; Z79.84 Long term (current) use of oral hypoglycemic drugs
CPT/HCPCS: 36415; 73630; 80053; 83036; 84550

== ENCOUNTER → 2023-03-17 08:15 | Outpatient (CLI) | payer MEDICARE, SELFPAY ==
--- NOTE | 2023-03-17 08:18 | XR_ITS ---
FINAL REPORT CLINICAL HISTORY: Osteoporosis screening COMPARISON: None FINDINGS: Using L1-4, the bone mineral density of the spine is 0.857 g/cm2, corresponding to T-score of -1.7, consistent with low bone density. Using the left hip, the bone mineral density of the femoral neck is 0.854 g/cm2, corresponding to a T-score of -0.7, within normal limit. Using the right hip, the bone mineral density of the femoral neck is 0.707 g/cm2, corresponding to a T-score of -1.3, consistent with low bone density. FRAX 10 year fracture risk is 1.2% for a hip fracture and 9.4% for a major osteoporotic fracture. NOTE: T-score: Standard deviation compared with peak bone mass of young adult mean. *Following the recommendations of the International Society of Bone densitometry, classification of hip BMD is based on the lower of two T-scores; total hip or femoral neck. IMPRESSION: Diminished bone mineral density consistent with low bone density. Reviewed, Interpreted and Dictated by Gilmar Larsen III, MD Transcribed by Amber Carroll Authenticated and [facility]
--- NOTE | 2023-03-17 08:20 | MM_ITS ---
PROCEDURE INFORMATION: Exam: MG Bilateral Screening 3D Mammography Exam date and time: 03/17/2023 8:20 AM Age: 72 years old Clinical indication: Screening examination TECHNIQUE: Imaging protocol: Bilateral Screening tomosynthesis and 2D mammography including computer-aided detection (CAD) when performed. COMPARISON: 1. MG MM DIG SCREENING MAMM BI W/CAD 01/28/2021 4:09 PM 2. MG MM DIG SCREENING MAMM BI W/CAD 02/02/2019 10:15 AM FINDINGS: MAMMOGRAPHY: Breast composition: There are scattered areas of fibroglandular density. Mass: None. Architectural distortion: None. Calcifications: No suspicious calcifications. Asymmetric density: None. Skin thickening: None. Axillary adenopathy: None. IMPRESSION: No mammographic evidence of malignancy. Annual screening is recommended unless otherwise clinically indicated. ASSESSMENT: BI-RADS Category 1: Negative
== END ==
LOC: RAD 08:16
PROVIDERS: PCP Internal Medicine Adolescent Medicine; Visit Provider Internal Medicine Adolescent Medicine
DX: Z12.31 Encounter for screening mammogram for malignant neoplasm of breast; Z13.820 Encounter for screening for osteoporosis; M81.0 Age-related osteoporosis without current pathological fracture
CPT/HCPCS: 77063; 77067; 77080

== ENCOUNTER 2024-09-20 11:15 | Emergency (ER) | payer MEDICARE, SELFPAY ==
[2024-09-20] VITALS (9 sets, daily range): BP systolic 136–161; BP diastolic 59–93; PULSE 61–72; RESP 13–18; TEMP 36.6–36.7; O2SAT 95–100; BMI 26.5; BMI 28.3
--- NOTE | 2024-09-20 11:17 | PC.NURSE ---
FSBS is 101 at this time.
--- NOTE | 2024-09-20 11:18 | HMH.EDGENADL ---
Discharge Plan Disposition Patient Disposition: Home, Self-Care Condition: Good Prescriptions Prescriptions: No Action aspirin [Adult Low Dose Aspirin] 81 mg tablet,delayed release (DR/EC) 81 mg PO DAILY lovastatin 40 mg tablet 40 mg PO DAILY (DME) lancets [OneTouch Delica Plus Lancet] 30 gauge misc See Rx Instructions .ROUTE .MEDSUPPLY Qty: 100 Rx Instructions: As directed Farxiga 10 mg tablet 10 mg PO (DME) OneTouch Verio test strips Strip See Rx Instructions .ROUTE .MEDSUPPLY Qty: 10 Rx Instructions: As directed calcium carbonate [Calcium 600] 600 mg calcium (1,500 mg) tablet 600 mg PO DAILY cholecalciferol (vitamin D3) 10 mcg (400 unit) capsule 10 mcg PO DAILY glimepiride 4 MG tablet 8 mg PO DAILY amlodipine-benazepril 1 EACH capsule 1 each PO DAILY exenatide microspheres 2 MG/0.85 ML auto-injector 2 mg SQ WEEKLY cefdinir 300 mg capsule 300 mg PO BID 10 Days Qty: 20 0RF Referrals Follow up/Referrals: Steven French MD [Primary Care Provider] - See instructions Clinical Impressions Clinical Impression: Hypoglycemia Instructions Patient Instructions: DI for Hyperglycemia -- Adult, DI for Altered Mental Status Print Language Print Language: Azerbaijani Discharge ED Provider: Galo Willams General Adult HPI <Lisa Cameron APRN - Last Filed: 09/21/24 12:13> General Chief complaint: Hyper/Hypoglycemia Stated complaint: low glucose Time Seen by Provider: 09/20/24 11:16 History of Present Illness HPI narrative: Elena Marmolejo is a 73-year-old female with past medical history to include diabetes who presents emergency room today after her son called EMS for low glucose. Patient states she took her Soliqua medication this morning but then became nauseated with it. States that she was unable to really eat much after taking her medicine this morning. When EMS arrived, blood glucose was noted to be in the 50s. EMS reports that she was lethargic, taking a long time to answer questions. They gave her some oral glucose which brought her blood sugar up into the 60s. Then gave her 12-1/2 cc of D50 which upon recheck, their glucose machine said her glucose was in the 300s. After receiving the D50, patient returned to baseline. Alert and oriented x 4. Not confused. No focal neurodeficits noted. Patient denies any other complaints. No recent fever or illness noted. No chest pain, shortness of breath. No complaints noted at this time. Please note that the above description of symptoms, and this electronic medical record under categorization of recalled from ER triage doctor by RN are reflective of an initial nursing assessment, however, is not reflective of my full history and physical exam that was personally taken and clarified. Consequentially, this proceeding description of symptoms, which may include the patient's cauterized chief complaint in the EMR, do not reflect my personal clinical impression, and the ultimate description of the history of present illness stated complaints should be deferred to this section of this note. Unless stated otherwise were congruent with the section of the note, additional signs, symptoms, or incongruence can be interpreted as in or accurate with my clinical impression. Related Data Home Medications ?Medication ?Instructions ?Recorded ?Confirmed aspirin 81 mg tablet,delayed 81 mg PO DAILY HEART SIERRA 05/05/17 02/04/21 release (Adult Low Dose Aspirin) lovastatin 40 mg tablet 40 mg PO DAILY Cholesterol 05/06/17 02/04/21 amlodipine 5 mg-benazepril 40 mg 1 each PO DAILY Hypertension 09/19/20 02/04/21 capsule exenatide microspheres 2 mg/0.85 2 mg SQ WEEKLY Diabetes 09/19/20 02/04/21 mL subcutaneous auto-injector glimepiride 4 mg tablet 8 mg PO DAILY Diabetes 09/19/20 02/04/21 blood sugar diagnostic (vidCoinTouch #10 ea 01/20/21 02/04/21 Verio test strips) calcium carbonate (Calcium 600) 600 mg PO DAILY 01/20/21 02/04/21 cholecalciferol (vitamin D3) 10 10 mcg PO DAILY 01/20/21 02/04/21 mcg (400 unit) capsule dapagliflozin propanediol 10 mg 10 mg PO 01/20/21 02/04/21 tablet (Farxiga) lancets 30 gauge (vidCoinTouch Delica #100 ea 01/20/21 02/04/21 Plus Lancet) Previous Rx's ?Medication ?Instructions ?Recorded cefdinir 300 mg capsule 300 mg PO BID 10 days #20 caps 08/08/22 Allergies Allergy/AdvReac Type Severity Reaction Status Date / Time acetaminophen (From Allergy Mild Fainting Verified 08/08/22 12:52 Tylenol-Codeine #3) codeine (From Allergy Mild Fainting Verified 08/08/22 12:52 Tylenol-Codeine #3) [facility] <Lisa Cameron APRN - Last Filed: 09/21/24 12:13> [facility] Disclaimer: The information contained in this section may have been updated after the patient was seen, as this information can be updated by other users. Medical History (Updated 09/20/24 @ 13:30 by Soy Pickard RN) HLD (hyperlipidemia) Diabetes mellitus Abnormal Electrocardiogram Social History Smoking Status: Never smoker second hand exposure: Yes alcohol intake: never substance use type: denies use current occupational status: retired Travel in the last 8 weeks?: None household members: spouse housing: house current occupational exposures/hazards: No caffeine: Yes Other Medical History Have you received the Flu Vaccine for this season: No Have you received the Pneumonia Vaccine: No <Lisa Cameron APRN - Last Filed: 09/21/24 12:13> ROS Obtained: Yes Systems reviewed as appropriate & no additional complaints except as documented Physical Exam <Lisa Cameron APRN - Last Filed: 09/21/24 12:13> General General appearance: alert and in no apparent distress Head Head exam: atraumatic and normocephalic Eye Eye exam: Present PERRL and EOMI Chest Chest inspection: Present symmetric chest wall rise Respiratory Respiratory exam: Present normal lung sounds bilaterally Cardiovascular Cardiovascular exam: Present regular rate and normal rhythm Abdominal Exam Abdominal exam: Present soft and normal bowel sounds; Absent tenderness Extremities Exam Extremities exam: Present full ROM Neurological Exam Neurological exam: Present alert and oriented X3 Skin Skin exam: Present warm, dry and intact Medical Decision Making <Lisa Cameron APRN - Last Filed: 09/21/24 12:13> Medical Records Screening: Per USPSTF and CDC recommendations, given the prevalence of disease in our region, it is our hospital?s policy to screen for HIV and viral Hepatitis for all patients aged 18 and over and those with ongoing risk factors. Alex Inquiry Pt receiving controlled substance: No Vital Signs: 09/20/24 11:31 09/20/24 11:44 09/20/24 11:47 Temperature 98.1 F 98 F Temperature Source Oral Oral Pulse Rate 68 Pulse Rate [Left] 65 Pulse Rate [Right Radial] 63 Respiratory Rate 13 16 16 Blood Pressure 144/59 H Blood Pressure [Right Arm] 144/59 H 144/59 H Blood Pressure Mean [Right Arm] 87 87 Blood Pressure Source Blood Pressure Source [Right Arm] Automatic Cuff Automatic Cuff Blood Pressure Position Blood Pressure Position [Right Arm] Supine Sitting 02 Sat by Pulse Oximetry 99 98 99 Oxygen Delivery Method Room Air Room Air Room Air 09/20/24 12:00 09/20/24 12:29 09/20/24 12:30 Temperature Temperature Source Pulse Rate 61 64 61 Pulse Rate [Left] Pulse Rate [Right Radial] Respiratory Rate 15 Blood Pressure 136/77 161/93 H 158/64 H Blood Pressure [Right Arm] Blood Pressure Mean [Right Arm] Blood Pressure Source Blood Pressure Source [Right Arm] Blood Pressure Position Blood Pressure Position [Right Arm] 02 Sat by Pulse Oximetry 98 99 100 Oxygen Delivery Method Room Air Room Air Room Air 09/20/24 13:01 09/20/24 13:25 09/20/24 13:30 Temperature 98.0 F Temperature Source Oral Pulse Rate 72 68 63 Pulse Rate [Left] Pulse Rate [Right Radial] Respiratory Rate 18 Blood Pressure 154/79 H 154/79 H 136/59 L Blood Pressure [Right Arm] Blood Pressure Mean [Right Arm] Blood Pressure Source Automatic Cuff Blood Pressure Source [Right Arm] Blood Pressure Position Sitting Blood Pressure Position [Right Arm] 02 Sat by Pulse Oximetry 95 96 Oxygen Delivery Method Room Air Room Air Room Air Lab Data Lab Results 09/20/24 12:22: WBC 11.5 H, RBC 4.82, Hgb 13.9, Hct 42.2, MCV 87.6, MCH 28.8, MCHC 32.9, RDW 12.8, Plt Count 206, MPV 9.8, Neut % (Auto) 88.4 H, Lymph % (Auto) 5.9 L, Lamar % (Auto) 4.7, Eos % (Auto) 0.3, Baso % (Auto) 0.4, Neut # (Auto) 10.1 H, Lymph # (Auto) 0.7, Lamar # (Auto) 0.5, Eos # (Auto) 0.0, Baso # (Auto) 0.1, Sodium 141, Potassium 3.9, Chloride 109 H, Carbon Dioxide 28, Anion Gap 7.9, BUN 18 H, Creatinine 0.80, Estimated Creat Clear 55, Estimated GFR 71, Est GFR ( Amer) 86, Glucose 164 H, Calcium 9.1, Total Bilirubin 0.3, AST 23, ALT 19, Alkaline Phosphatase 52, Total Protein 6.5, Albumin 4.2, Globulin 2.3, Albumin/Globulin Ratio 1.8, HCV Ab RD w/Rflx PCR Qn Negative 09/20/24 12:22 09/20/24 12:22 Orders (Tests/Meds): ORDERS Category Date Time Status CBC w/Auto Diff [Complete Blood Count Auto Diff] Stat Lab 09/20/24 12:22 Completed CMP [Comprehensive Metabolic Panel] Stat Lab 09/20/24 12:22 Results Hepatitis C Ab Qual. W/ RFX Stat Lab 09/20/24 12:22 Completed Medical Decision Narrative: In summary patient is an 73-year-old female who presents emergency department for evaluation via EMS for low glucose. Patient is hemodynamically stable upon arrival, afebrile. Patient with an unremarkable physical exam, no focal exam, alert and oriented x 3, moving all extremities symmetrically, 5 out of 5 strength in all extremities.. Differential diagnosis includes hypoglycemia, CVA, acute cystitis. Initial workup will be conducted with serial monitoring of blood glucose. Initial interventions include encouraging p.o. intake of some sugary food/soda, blood glucose currently 101. Initial workup reviewed by mn hematologic labs remarkable for a slight elevated white count of 11.5 which could be reactive with her low blood sugar. Patient has no fever, no reports of upper respiratory illness, no abdominal pain, no dysuria, hematuria. Chemistry panel essentially unremarkable. Glucose noted to be 164. Glucose rechecked again on fingerstick and was noted to be in the 160s.. Upon repeat evaluation patient had complete resolution of symptoms, reports feeling back to normal, not lethargic, alert and oriented x 4, laying on extremities symmetrically. Patient reports that she understands and knows her symptoms were from not being able to eat and taking her insulin this morning. Given this patient appropriate for discharge at this time. No prescriptions to be given. Patient continue medications as prescribed at home. Patient knows to monitor her blood glucose as she does per usual. She will return to the ER should symptoms return or if she has any other concerns. <Galo Willams MD - Last Filed: 09/29/24 23:02> Vital Signs: 09/20/24 11:31 09/20/24 11:44 09/20/24 11:47 Temperature 98.1 F 98 F Temperature Source Oral Oral Pulse Rate 68 Pulse Rate [Left] 65 Pulse Rate [Right Radial] 63 Respiratory Rate 13 16 16 Blood Pressure 144/59 H Blood Pressure [Right Arm] 144/59 H 144/59 H Blood Pressure Mean [Right Arm] 87 87 Blood Pressure Source Blood Pressure Source [Right Arm] Automatic Cuff Automatic Cuff Blood Pressure Position Blood Pressure Position [Right Arm] Supine Sitting 02 Sat by Pulse Oximetry 99 98 99 Oxygen Delivery Method Room Air Room Air Room Air 09/20/24 12:00 09/20/24 12:29 09/20/24 12:30 Temperature Temperature Source Pulse Rate 61 64 61 Pulse Rate [Left] Pulse Rate [Right Radial] Respiratory Rate 15 Blood Pressure 136/77 161/93 H 158/64 H Blood Pressure [Right Arm] Blood Pressure Mean [Right Arm] Blood Pressure Source Blood Pressure Source [Right Arm] Blood Pressure Position Blood Pressure Position [Right Arm] 02 Sat by Pulse Oximetry 98 99 100 Oxygen Delivery Method Room Air Room Air Room Air 09/20/24 13:01 09/20/24 13:25 09/20/24 13:30 Temperature 98.0 F Temperature Source Oral Pulse Rate 72 68 63 Pulse Rate [Left] Pulse Rate [Right Radial] Respiratory Rate 18 Blood Pressure 154/79 H 154/79 H 136/59 L Blood Pressure [Right Arm] Blood Pressure Mean [Right Arm] Blood Pressure Source Automatic Cuff Blood Pressure Source [Right Arm] Blood Pressure Position Sitting Blood Pressure Position [Right Arm] 02 Sat by Pulse Oximetry 95 96 Oxygen Delivery Method Room Air Room Air Room Air Lab Data Lab Results 09/20/24 12:22: WBC 11.5 H, RBC 4.82, Hgb 13.9, Hct 42.2, MCV 87.6, MCH 28.8, MCHC 32.9, RDW 12.8, Plt Count 206, MPV 9.8, Neut % (Auto) 88.4 H, Lymph % (Auto) 5.9 L, Lamar % (Auto) 4.7, Eos % (Auto) 0.3, Baso % (Auto) 0.4, Neut # (Auto) 10.1 H, Lymph # (Auto) 0.7, Lamar # (Auto) 0.5, Eos # (Auto) 0.0, Baso # (Auto) 0.1, Sodium 141, Potassium 3.9, Chloride 109 H, Carbon Dioxide 28, Anion Gap 7.9, BUN 18 H, Creatinine 0.80, Estimated Creat Clear 55, Estimated GFR 71, Est GFR ( Amer) 86, Glucose 164 H, Calcium 9.1, Total Bilirubin 0.3, AST 23, ALT 19, Alkaline Phosphatase 52, Total Protein 6.5, Albumin 4.2, Globulin 2.3, Albumin/Globulin Ratio 1.8, HCV Ab RD w/Rflx PCR Qn Negative Orders (Tests/Meds): ORDERS Category Date Time Status CBC w/Auto Diff [Complete Blood Count Auto Diff] Stat Lab 09/20/24 12:22 Completed CMP [Comprehensive Metabolic Panel] Stat Lab 09/20/24 12:22 Results Hepatitis C Ab Qual. W/ RFX Stat Lab 09/20/24 12:22 Completed Medical Decision Narrative: In summary patient is an 73-year-old female who presents emergency department for evaluation via EMS for low glucose. Patient is hemodynamically stable upon arrival, afebrile. Patient with an unremarkable physical exam, no focal exam, alert and oriented x 3, moving all extremities symmetrically, 5 out of 5 strength in all extremities.. Differential diagnosis includes hypoglycemia, CVA, acute cystitis. Initial workup will be conducted with serial monitoring of blood glucose. Initial interventions include encouraging p.o. intake of some sugary food/soda, blood glucose currently 101. Initial workup reviewed by mn hematologic labs remarkable for a slight elevated white count of 11.5 which could be reactive with her low blood sugar. Patient has no fever, no reports of upper respiratory illness, no abdominal pain, no dysuria, hematuria. Chemistry panel essentially unremarkable. Glucose noted to be 164. Glucose rechecked again on fingerstick and was noted to be in the 160s.. Upon repeat evaluation patient had complete resolution of symptoms, reports feeling back to normal, not lethargic, alert and oriented x 4, laying on extremities symmetrically. Patient reports that she understands and knows her symptoms were from not being able to eat and taking her insulin this morning. Given this patient appropriate for discharge at this time. No prescriptions to be given. Patient continue medications as prescribed at home. Patient knows to monitor her blood glucose as she does per usual. She will return to the ER should symptoms return or if she has any other concerns. I was consulted by the GRICEL, and we discussed the complexity of the problems being addressed. I approved the treatment and management plan for this patient's care in the Emergency Department, thus performing a substantive portion of the medical decision making. Galo Willams MD Critical Care <Lisa Cameron, RESAW OPERATOR - Last Filed: 09/21/24 12:13> Critical Care Time Critical Care Time: No
--- NOTE | 2024-09-20 11:22 | ECG_ITS ---
APPROVED REPORT Exam: Resting ECG HR:59 bpm ECG Measurements Heart Rate 59 AXES VA 160 P 53 QRSd 102 QRS 9 QT 431 T 94 QTc 431 Conclusion SINUS BRADYCARDIA LOW QRS VOLTAGE IN PRECORDIAL LEADS [QRS DEFLECTION < 1.0 mV IN CHEST LEADS] POSSIBLE ANTERIOR MYOCARDIAL INFARCTION , OF INDETERMINATE AGE [30 ms Q WAVE IN V3/V4, OR R < 0.2 mV IN V4] ABNORMAL ECG UNCONFIRMED REPORT Electronically signed by : MARCY CALLE, 09/21/2024 02:22:20
--- NOTE | 2024-09-20 11:46 | PC.NURSE ---
Pt brought in by [facility], hypogylcemia. EMS gave 12.5 amp D50, POC glucose here 101. EMS gave Ross report.
--- NOTE | 2024-09-20 12:12 | PC.NURSE ---
glucose 133
[2024-09-20 12:35] LABS: Basophils # 0.1 K/mm3 (0-0.2); Basophils % 0.4 % (0.1-2.0); Eosinophils % 0.3 % (0.1-12.0); Hematocrit 42.2 % (37.0-47.0); Hemoglobin 13.9 g/dL (12.2-16.2); Immature Granulocytes # 0.03 10^3uL; Immature Granulocytes % 0.3 %; Lymphocytes # 0.7 K/mm3 (0.7-4.5); Lymphocytes % 5.9 % (10-50); Mean Corpuscular HGB Conc 32.9 g/dL (31.8-35.4); Mean Corpuscular Hemoglobin 28.8 pg (27.0-31.2); Mean Corpuscular Volume 87.6 fl (81-99); Mean Platelet Volume 9.8 fl (7.4-10.4); Monocytes # 0.5 K/mm3 (0.1-1.0); Monocytes % 4.7 % (1.7-9.3); Neutrophils # 10.1 K/mm3 (1.8-7.8); Neutrophils % 88.4 % (37.0-80.0); Nucleated Red Blood Cells # 0 10^3/uL; Nucleated Red Blood Cells % 0 %; Platelet Count 206 K/mm3 (142-424); Red Blood Count 4.82 M/mm3 (4.20-5.40); Red Cell Distribution Width 12.8 % (11.5-17.5); White Blood Count 11.5 K/mm3 (4.8-10.8)
[2024-09-20 12:38] LABS: Chloride 109 mmol/L (98-107)
[2024-09-20 12:39] LABS: Albumin Level 4.2 g/dl (3.5-5.0); Potassium 3.9 mmoL/L (3.5-5.1); Sodium 141 mmol/L (136-145)
[2024-09-20 12:41] LABS: Blood Urea Nitrogen 18 mg/dl (7-17); Creatinine Clearance Estimated 55 mL/min (50-200); Estimated Glomerular Filt Rate 71 ml/min (>60); GFR (African American) 86 ML/MIN (>60)
[2024-09-20 12:42] LABS: Alanine Aminotransferase 19 U/L (12-78); Albumin/Globulin Ratio 1.8 (1.1-1.8); Alkaline Phosphatase 52 U/L (38-126); Anion Gap 7.9 mEq/L (5-15); Aspartate Amino Transferase 23 U/L (14-36); Bilirubin,Total 0.3 mg/dl (0.2-1.3); Calcium 9.1 mg/dl (8.4-10.2); Carbon Dioxide 28 mmol/L (22.0-30.0); Globulin 2.3 g/dL (1.3-3.2); Glucose 164 mg/dl (74-100); Total Protein,Serum 6.5 g/dl (6.3-8.2)
[2024-09-20 13:48] LABS: Hepatitis C Ab Qual. W/ RFX NEGATIVE (Negative)
== END 2024-09-20 13:34 | disposition home or self-care (01) ==
PROVIDERS: Nurse Practitioner Acute Care; Emergency Provider Emergency Medicine; PCP Internal Medicine Adolescent Medicine
DX: E11.649 Type 2 diabetes mellitus with hypoglycemia without coma (principal); R00.1 Bradycardia, unspecified; Z11.59 Encounter for screening for other viral diseases
CPT/HCPCS: 80053; 85025; 86803; 93005; 99283

== ENCOUNTER 2024-12-12 10:00 | Outpatient (CLI) | payer MEDICARE, SELFPAY ==
--- OUTSIDE RECORDS SUMMARY | 2024-12-13 11:09 | XMS_ITS | Clinical Summary ---
Author Organization [facility] Address [address] [place] [address] Care Team Providers Care Business Asst Name Role Phone Susan Drummond APRN Primary Care Provider [phone] Allergies Active Allergy Reactions Criticality Noted Date Comments Acetaminophen-Codeine Other (See Comments) High 09/2019 syncope Medications CINNAMON PO Take by mouth. Act nitza coenzyme Q10 100 MG capsule Take 100 mg by mouth Daily. Active nabumetone (RELAFEN) 500 MG tabletIndicatio ns:Acute right-sided thoracic back pain Take 1 tablet by mouth 2 (Two) Times a Day As Needed for Mild Pain . 30 tablet 1 0 Active cyclobenzaprine (FLEXERIL) 10 MG tabletIndicatio ns:Acute right-sided thoracic back pain Take 0.5-1 tablets by mouth 3 (Three) Times a Day As Needed for Muscle Spasms. 20 tablet 1 0 Active amLODIPine-jean zepril (LOTREL) 5-40 MG per capsule Take 1 capsule by mouth Daily. 90 capsule 2 0 Active Blood Glucose Monitoring Suppl (ParentPlus Verio Flex System) w/Device kit 1 each Daily. 1 kit 1 Active exenatide er (Bydureon BCise) 2 MG/0.85ML auto-injector injection Inject 0.85 mL under the skin into the appropriate area as directed 1 (One) Time Per Week. 12 pen 6 1 Active glimepiride (AMARYL) 4 MG tablet Take 1 tablet by mouth Daily With Breakfast & Dinner. 180 tablet 1 1 Active lovastatin (MEVACOR) 40 MG tablet TAKE 1 TABLET BY MOUTH EVERY NIGHT. 90 tablet 1 Active Lancets (OneTouch Delica Plus [id number]) misc CHECK BLOOD SUGAR TWICE DAILY 100 each 4 2 Active glucose blood (OneTouch Verio) test strip Check blood sugar twice daily. Dx E11.65 200 each 3 2 Active neomycin-polymy rony-dexamethame thasone (POLYDEX) 3.5-84368-7.1 ointment ophthalmic ointment Apply 1 cm strip into lower lid of left eye twice daily 3.5 g 07/20/2024 9:37 AM EDT 5 Active Active Problems Problem Noted Date Diagnosed Date Type 2 diabetes mellitus wit h hyperglycemia, without long-term current use of insulin 05/07/2020 Essential hypertension 05/07/2020 Mixed hyperlipidemia 05/07/2020 Immunizations Immunization Administration Dates Next Due Pneumococcal Conjugate 13-Valent (PCV13) 019 Pneumococcal Polysaccharide (PPSV23) 02/19/2020 Family History Medical History Relation Name Comments Stroke Father Diabetes Mother Heart disease Mother Diabetes Son Relation Name Status Comments Father Alive Mother Son Alive Social History Tobacco Use Types Packs/Day Years Used Date Smoking Tobacco: Never Smokeless Tobacco: Never Alcohol Use Standard Drinks/Week Comments No 0 (1 standard drink = 0.6 oz pur e alcohol) AUDIT-C Answer Date Recorded Q1: How often do you have a drink containing alc ohol? Never 05/07/2020 Average Number of Drinks Not on file 021 Frequency of Binge Drinking Not on file 04/26 PHQ-2 Answer Date Recorded Retired Total Score 0 07/23/2020 Abuse Screen Answer Date Recorded Unsafe at Home or Work/School Not on file Feels Threatened by Someone? Not on file 03/2023 Does Anyone Keep You from Co ntacting Others or Doint Things Outside the Home? Not on file 02/04/2023 Physical Sign of Abuse Present Not on file 1 Housing Stability Answer Date Recorded Current Living Arrangements Not on file 01/24 Potentially Unsafe Housing Conditions Not on marcelo e 02/04/2023 Family and Community Support Answer Tye e Recorded Help with Day-to-Day Activities Not on file 02/04/2023 Lonely or Isolated Not on file 02/04/2023 Employment Answer Date Recorded Do you want help finding or keeping work or a josephine b? Not on file 02/04/2023 Disabilities Answer Date Recorded Concentrating, Remembering, or Making Decisions Difficulty Not on file 02/04/2023 Doing Errands Independently Difficulty Not on fi le 02/04/2023 Education Answer Date Recorded Help with school or training? Not on file Preferred Language Not on file 02/04/2023 Comments Unknown Sex and Gender Information Value Date Recorded Sex Assigned at Not on file Legal Sex Female 10:49 AM EDT Gender Identity Not on file Sexual Orientation Not on file Last Filed Vital Signs Vital Sign Reading Time Taken Comments Blood Pressure 122/60 08/12/2020 9:03 AM EDT Pulse 67 08/12/2020 9:03 AM EDT Temperature 36.1 C (96.9 F) 08/12/2020 9:03 AM EDT Respiratory Rate 18 07/23/2020 12:10 PM EDT Oxygen Saturation 98% 08/12/2020 9:03 AM EDT Inhaled Oxygen Concentration - - Weight 72.8 kg (160 lb 9.6 oz) 08/12/2020 9:03 A M EDT Height 154.9 cm (5' 1 ) 08/12/2020 9:03 AM EDT Body Mass Index 30.35 08/12/2020 9:03 AM EDT Plan of Treatment Health Maintenance Due Date Last Done Comments DXA SCAN 1952 TDAP/TD VACCINES (1 - Tdap) 12/15/1971 COLOGUARD 1997 COLON CANCER SCREENING 5 YEA R SIGMOIDOSCOPY 1997 CT COLONOGRAPHY 1997 FECAL OCCULT BLOOD TEST 1997 FIT Testing (1 year) 1997 ZOSTER VACCINE (1 of 2) 2002 ANNUAL PHYSICAL 02/07/2019 HEPATITIS C SCREENING 02/07/2019 MAMMOGRAM 02/02/2021 02/02/2019 LIPID PANEL 08/12/2021 08/12/2020, 02/05/2020 COVID-19 Vaccine (2 - 2023-2 5 season) 2023 07/03/2020 INFLUENZA VACCINE 01/24/2025 02/23/2020, 12/30/2018 COLONOSCOPY 04/10/2029 04/10/2019 COLORECTAL CANCER SCREENING 04/10/2029 URINE MICROALBUMIN-CREATININ E RATIO (uACR) Discontinued 02/05/2020 Pneumococcal Vaccine 50+ Completed 02/19/2020, 09/2018 HEMOGLOBIN A1C Discontinued 08/12/2020, 04/26, 02/05/2020 Procedures Procedure Name Priority Date/Time Associated Diagnosis Comments LIPID PANEL Routine 08/12/2020 9:42 AM EDT Type 2 diabetes mellitus with hyperglycemia, without long-term current use of insulin Mixed hyperlipidemia POCT GLYCOSYLATED HEMOGLOBIN (HGB A1C) Routine 08/12/2020 9:16 AM EDT Type 2 diabetes mellitus with hyperglycemia, without long-term current use of insulin MICROALBUMIN / CREATININE URINE RATIO Routine 02/05/2020 9:13 AM EDT Controlled type 2 diabetes mellitus without complication, without long-term current use of insulin SCANNED - COLONOSCOPY 04/10/2019 SCANNED - MAMMO 02/02/2019 from Last 3 Months or Most Recently Relevant to Health Maintenance Results * (ABNORMAL) Lipid Panel (08/12/2020 9:42 AM EDT) Total Cholesterol 224(H) 0 - 200 mg/dL 08/12/2020 6:22 PM EDT [facility] Triglycerides 140 0 - 150 mg/dL 08/12/2020 6:22 PM EDT [facility] HDL Cholesterol 52 40 - 60 mg/dL 08/12/2020 6:22 PM EDT [facility] LDL Cholesterol 147(H) 0 - 100 mg/dL 08/12/2020 6:22 PM EDT [facility] VLDL Cholesterol 25 5 - 40 mg/dL 08/12/2020 6:22 PM EDT [facility] LDL/HDL Ratio 2.77 08/12/2020 6:22 PM EDT [facility] Blood Venipuncture / Unknown 08/12/2020 9:42 AM EDT 08/12/2020 9:42 AM EDT Narrative [facility] - 08/12/2020 6:22 PM EDT Cholesterol Reference Ranges (U.S. Department of Health and Human Services ATP III Classifications) Desirable <200 mg/dL Borderline High 200-239 mg/dL High Risk >240 mg/dL Triglyceride Reference Ranges (U.S. Department of Health and Human Services ATP III Classifications) Normal <150 mg/dL Borderline High 150-199 mg/dL High 200-499 mg/dL Very High >500 mg/dL HDL Reference Ranges (U.S. Department of Health and Human Services ATP III Classifcations) Low <40 mg/dl (major risk factor for CHD) High >60 mg/dl ('negative' risk factor for CHD) LDL Reference Ranges (U.S. Department of Health and Human Services ATP III Classifcations) Optimal <100 mg/dL Near Optimal 100-129 mg/dL Borderline High 130-159 mg/dL High 160-189 mg/dL Very High >189 mg/dL Amanda ORTIZ LAB BLOOD ORDERABLES Shruti l Result [facility]
[address] [id number], [place] [phone] * POC Glycosylated Hemoglobin (Hb A1C) (08/12/2020 9:16 AM EDT) Hemoglobin A1C 7.2 % [facility] Lot Number [id number] [facility] Expiration Date 05/15/22 [facility] Blood 08/12/2020 9:16 AM EDT Amanda ORTIZ POINT OF CARE TEST ORDERA BLES Final Result Performing Organization Address City/[facility]/ZIP Co de Phone Number [facility]
[address] [place] [address], [place] [phone] * Microalbumin / Creatinine Urine Ratio - Urine, Clean Catch (02/05/2020 9:13 AM EDT) Microalbumin/C reatinine Ratio 02/06/2020 12:19 AM EDT [facility] Comment:Unable to calculate Creatinine, Urine 49.6 mg/dL 02/06/2020 12:19 AM EDT [facility] Microalbumin, Urine <1.2 mg/dL 02/06/2020 12:19 AM EDT [facility] Urine Urine specimen collection, clean catch / Unknown Collection / Unknown 02/05/2020 9:13 AM EDT 02/05/2020 9:13 AM EDT Amanda ORTIZ URINE ORDERABLES Final Re sult [facility]
[address] [place] [address], * SCANNED - COLONOSCOPY (04/10/2019) Eusebio ORTIZ CHART REVIEW TABS Final Res ult * SCANNED - MAMMO (02/02/2019) Anatomical Region Laterality Modality Other Eusebio ORTIZ CHART REVIEW TABS Final Res ult from Last 3 Months or Most Recently Relevant to Health Maintenance Insurance [employer] HMO Care Teams Business Asst Relationship Specialty Start Date End Date Susan Drummond APRN [address] [address] [place] [address] PCP - General Internal Medicine 10/05/24
== END 2024-12-12 23:59 | disposition home or self-care (01) ==
LOC: LAB.DROPOF 12-13 10:54
PROVIDERS: PCP Nurse Practitioner Family; Visit Provider Nurse Practitioner Family
DX: E11.9 Type 2 diabetes mellitus without complications (principal); Z79.4 Long term (current) use of insulin
CPT/HCPCS: 82043; 82570

== ENCOUNTER 2025-02-01 15:28 | Outpatient (CLI) | payer MEDICARE, SELFPAY ==
[2025-02-01 19:05] LABS: Alanine Aminotransferase 11 U/L (12-78); Albumin Level 4.5 g/dl (3.5-5.0); Albumin/Globulin Ratio 1.9 (1.1-1.8); Alkaline Phosphatase 51 U/L (38-126); Anion Gap 17.0 mEq/L (5-15); Aspartate Amino Transferase 23 U/L (14-36); Bilirubin,Total 0.7 mg/dl (0.2-1.3); Blood Urea Nitrogen 16 mg/dl (7-17); Calcium 9.7 mg/dl (8.4-10.2); Carbon Dioxide 27 mmol/L (22.0-30.0); Chloride 103 mmol/L (98-107); Creatinine,Serum 1.00 mg/dl (0.52-1.04); Estimated Glomerular Filt Rate 55 ml/min (>60); GFR (African American) 66 ML/MIN (>60); Globulin 2.4 g/dL (1.3-3.2); Glucose 105 mg/dl (74-100); Magnesium 2.2 mg/dl (1.6-2.3); Potassium 5.0 mmoL/L (3.5-5.1); Sodium 142 mmol/L (136-145); Total Protein,Serum 6.9 g/dl (6.3-8.2)
--- OUTSIDE RECORDS SUMMARY | 2025-02-02 01:56 | XMS_ITS | Clinical Summary ---
Author Organization [facility] Address [address] [place] [address] Care Team Providers Care Financial Services Agent Name Role Phone Susan Drummond APRN Primary Care Provider Allergies Active Allergy Reactions Criticality Noted Date [...] 2 0 Active Blood Glucose Monitoring Suppl ([employer] Verio Flex System) w/Device kit 1 each [...] tablet 1 Active Lancets (OneTouch Delica Plus [id number]) misc CHECK BLOOD SUGAR TWICE DAILY 100 each 4 2 Active glucose blood (OneTouch Verio) test strip Check blood sugar twice daily. Dx E11.65 200 each 3 2 Active neomycin-polymy rony-dexamethame thasone (POLYDEX) 3.5-25607-1.1 ointment ophthalmic ointment Apply 1 cm strip [...] 02/02/2021 02/02/2019 LIPID PANEL 08/12/2021 08/12/2020, 02/05/2020 INFLUENZA VACCINE 11/24/2024 02/23/2020, 12/30/2018 COVID-19 Vaccine (2 - 2024-2 6 season) 2024 07/03/2020 COLONOSCOPY 04/10/2029 04/10/2019 COLORECTAL CANCER SCREENING 04/10/2029 [...] - 200 mg/dL 08/12/2020 6:22 PM EDT [facility] Triglycerides 140 0 - 150 mg/dL 08/12/2020 6:22 PM EDT [facility] HDL Cholesterol 52 40 - 60 mg/dL 08/12/2020 6:22 PM EDT [facility] LDL Cholesterol 147(H) 0 - 100 mg/dL 08/12/2020 6:22 PM EDT [facility] VLDL Cholesterol 25 5 - 40 mg/dL 08/12/2020 6:22 PM EDT [facility] LDL/HDL Ratio 2.77 08/12/2020 6:22 PM EDT [facility] Blood Venipuncture / Unknown 08/12/2020 9:42 AM EDT 08/12/2020 9:42 AM EDT Narrative [facility] - 08/12/2020 6:22 PM EDT [...] ORTIZ LAB BLOOD ORDERABLES Shruti l Result [facility]
[address] [id number], [place] [phone] * POC Glycosylated Hemoglobin (Hb A1C) (08/12/2020 9:16 AM EDT) Hemoglobin A1C 7.2 % [facility] Lot Number [id number] [facility] Expiration Date 05/15/22 [facility] Blood 08/12/2020 9:16 AM EDT Amanda ORTIZ POINT OF CARE TEST ORDERA BLES Final Result Performing Organization Address City/[facility]/ZIP Co de Phone Number [facility]
[address] [place] [address], [place] [phone] * Microalbumin / Creatinine Urine Ratio - Urine, Clean Catch (02/05/2020 9:13 AM EDT) Microalbumin/C reatinine Ratio 02/06/2020 12:19 AM EDT [facility] Comment:Unable to calculate Creatinine, Urine 49.6 mg/dL 02/06/2020 12:19 AM EDT [facility] Microalbumin, Urine <1.2 mg/dL 02/06/2020 12:19 AM EDT [facility] Urine Urine specimen collection, clean catch / Unknown Collection / Unknown 02/05/2020 9:13 AM EDT 02/05/2020 9:13 AM EDT Amanda ORTIZ URINE ORDERABLES Final Re sult [facility]
[address] [place] [address], * SCANNED - COLONOSCOPY (04/10/2019) Eusebio ORTIZ CHART REVIEW TABS Final Res ult * SCANNED - MAMMO (02/02/2019) Anatomical Region Laterality Modality Other Eusebio ORTIZ CHART REVIEW TABS Final Res ult from Last 3 Months or Most Recently Relevant to Health Maintenance Insurance [employer] H[employer] Care Teams Financial Services Agent Relationship Specialty Start Date End Date Susan Drummond APRN [address] [address] [place] [address] PCP - General Internal Medicine 10/05/24
== END 2025-02-01 23:59 ==
LOC: LAB.DROPOF 02-02 01:55
PROVIDERS: PCP Nurse Practitioner Family; Visit Provider Nurse Practitioner Family
DX: R25.2 Cramp and spasm (principal)
CPT/HCPCS: 80053; 83735

== ENCOUNTER 2025-03-19 09:41 | Outpatient (CLI) | payer MEDICARE, SELFPAY ==
--- OUTSIDE RECORDS SUMMARY | 2025-03-19 09:45 | XMS_ITS | Clinical Summary ---
Author Organization [facility] Address [address] [place] [address] Care Team Providers Care Lamination Spinner Name Role Phone Susan Drummond APRN Primary Care Provider [phone] Allergies Active Allergy Reactions Criticality Noted Date [...] 2 0 Active Blood Glucose Monitoring Suppl ([employer] Verio Flex System) w/Device kit 1 each [...] tablet 1 Active Lancets (OneTouch Delica Plus [id number]) misc CHECK BLOOD SUGAR TWICE DAILY 100 each 4 2 Active glucose blood (OneTouch Verio) test strip Check blood sugar twice daily. Dx E11.65 200 each 3 2 Active neomycin-polymy rony-dexamethame thasone (POLYDEX) 3.5-12714-2.1 ointment ophthalmic ointment Apply 1 cm strip [...] - 200 mg/dL 08/12/2020 6:22 PM EDT [facility] Triglycerides 140 0 - 150 mg/dL 08/12/2020 6:22 PM EDT [facility] HDL Cholesterol 52 40 - 60 mg/dL 08/12/2020 6:22 PM EDT [facility] LDL Cholesterol 147(H) 0 - 100 mg/dL 08/12/2020 6:22 PM EDT [facility] VLDL Cholesterol 25 5 - 40 mg/dL 08/12/2020 6:22 PM EDT [facility] LDL/HDL Ratio 2.77 08/12/2020 6:22 PM EDT [facility] Blood Venipuncture / Unknown 08/12/2020 9:42 AM EDT 08/12/2020 9:42 AM EDT Narrative [facility] - 08/12/2020 6:22 PM EDT [...] ORTIZ LAB BLOOD ORDERABLES Shruti l Result [facility]
[address] [id number], [place] [phone] * POC Glycosylated Hemoglobin (Hb A1C) (08/12/2020 9:16 AM EDT) Hemoglobin A1C 7.2 % [facility] Lot Number [id number] [facility] Expiration Date 05/15/22 [facility] Blood 08/12/2020 9:16 AM EDT Amanda ORTIZ POINT OF CARE TEST ORDERA BLES Final Result Performing Organization Address City/[facility]/ZIP Co de Phone Number [facility]
[address] [place] [address], [place] [phone] * Microalbumin / Creatinine Urine Ratio - Urine, Clean Catch (02/05/2020 9:13 AM EDT) Microalbumin/C reatinine Ratio 02/06/2020 12:19 AM EDT [facility] Comment:Unable to calculate Creatinine, Urine 49.6 mg/dL 02/06/2020 12:19 AM EDT [facility] Microalbumin, Urine <1.2 mg/dL 02/06/2020 12:19 AM EDT [facility] Urine Urine specimen collection, clean catch / Unknown Collection / Unknown 02/05/2020 9:13 AM EDT 02/05/2020 9:13 AM EDT Amanda ORTIZ URINE ORDERABLES Final Re sult [facility]
[address] [place] [address], * SCANNED - COLONOSCOPY (04/10/2019) Eusebio ORTIZ CHART REVIEW TABS Final Res ult * SCANNED - MAMMO (02/02/2019) Anatomical Region Laterality Modality Other Eusebio ORTIZ CHART REVIEW TABS Final Res ult from Last 3 Months or Most Recently Relevant to Health Maintenance Insurance [facility] [employer] [facility] Care Teams Lamination Spinner Relationship Specialty Start Date End Date Susan Drummond APRN [address] [address] [place] [address] PCP - General Internal Medicine 10/05/24
--- NOTE | 2025-03-19 10:00 | MM_ITS ---
PROCEDURE INFORMATION: Exam: MG Bilateral Screening 3D Mammography Exam date and time: 03/19/2025 9:43 AM Age: 74 years old Clinical indication: Screening exam. TECHNIQUE: Imaging protocol: Bilateral Screening tomosynthesis and 2D mammography including computer-aided detection (CAD) when performed. COMPARISON: MG MM DIG SCREENING MAMM BI W/CAD 03/17/2023 8:20 AM FINDINGS: MAMMOGRAPHY: Breast composition: There are scattered areas of fibroglandular density. Mass: No suspicious masses. Architectural distortion: None. Calcifications: No suspicious calcifications. Asymmetric density: None. Skin thickening: None. Axillary adenopathy: None. IMPRESSION: No mammographic evidence of malignancy. Annual screening is recommended unless otherwise clinically indicated. ASSESSMENT: BI-RADS Category 1: Negative.
== END 2025-03-19 23:59 | disposition home or self-care (01) ==
LOC: RAD 09:41
PROVIDERS: PCP Nurse Practitioner Family; Visit Provider Nurse Practitioner Family
DX: Z12.31 Encounter for screening mammogram for malignant neoplasm of breast (principal); R92.323 Mammographic fibroglandular density, bilateral breasts
CPT/HCPCS: 77063; 77067

== ENCOUNTER 2025-04-23 14:04 | Outpatient (CLI) | payer MEDICARE, SELFPAY ==
--- OUTSIDE RECORDS SUMMARY | 2025-04-23 14:06 | XMS_ITS | Clinical Summary ---
Author Organization [facility] Address [address] [place] [address] Care Team Providers Care Welder Operator Name Role Phone Susan Drummond APRN Primary [...] 2 0 Active Blood Glucose Monitoring Suppl ([employer] Verio Flex System) w/Device kit 1 each [...] tablet 1 Active Lancets (OneTouch Delica Plus [id number]) misc CHECK BLOOD SUGAR TWICE DAILY 100 each 4 2 Active glucose blood (OneTouch Verio) test strip Check blood sugar twice daily. Dx E11.65 200 each 3 2 Active neomycin-polymy rony-dexamethame thasone (POLYDEX) 3.5-90621-7.1 ointment ophthalmic ointment Apply 1 cm strip [...] - 200 mg/dL 08/12/2020 6:22 PM EDT [facility] Triglycerides 140 0 - 150 mg/dL 08/12/2020 6:22 PM EDT [facility] HDL Cholesterol 52 40 - 60 mg/dL 08/12/2020 6:22 PM EDT [facility] LDL Cholesterol 147(H) 0 - 100 mg/dL 08/12/2020 6:22 PM EDT [facility] VLDL Cholesterol 25 5 - 40 mg/dL 08/12/2020 6:22 PM EDT [facility] LDL/HDL Ratio 2.77 08/12/2020 6:22 PM EDT [facility] Blood Venipuncture / Unknown 08/12/2020 9:42 AM EDT 08/12/2020 9:42 AM EDT Narrative [facility] - 08/12/2020 6:22 PM EDT [...] ORTIZ LAB BLOOD ORDERABLES Shruti l Result [facility]
[address] [id number], [place] [phone] * POC Glycosylated Hemoglobin (Hb A1C) (08/12/2020 9:16 AM EDT) Hemoglobin A1C 7.2 % [facility] Lot Number [id number] [facility] Expiration Date 05/15/22 [facility] Blood 08/12/2020 9:16 AM EDT Amanda ORTIZ POINT OF CARE TEST ORDERA BLES Final Result Performing Organization Address City/[facility]/ZIP Co de Phone Number [facility]
[address] [place] [address], [place] [phone] * Microalbumin / Creatinine Urine Ratio - Urine, Clean Catch (02/05/2020 9:13 AM EDT) Microalbumin/C reatinine Ratio 02/06/2020 12:19 AM EDT [facility] Comment:Unable to calculate Creatinine, Urine 49.6 mg/dL 02/06/2020 12:19 AM EDT [facility] Microalbumin, Urine <1.2 mg/dL 02/06/2020 12:19 AM EDT [facility] Urine Urine specimen collection, clean catch / Unknown Collection / Unknown 02/05/2020 9:13 AM EDT 02/05/2020 9:13 AM EDT Amanda ORTIZ URINE ORDERABLES Final Re sult [facility]
[address] [place] [address], * SCANNED - COLONOSCOPY (04/10/2019) Eusebio ORTIZ CHART REVIEW TABS Final Res ult * SCANNED - MAMMO (02/02/2019) Anatomical Region Laterality Modality Other Eusebio ORTIZ CHART REVIEW TABS Final Res ult from Last 3 Months or Most Recently Relevant to Health Maintenance [facility] Care Teams Welder Operator Relationship Specialty Start Date End Date Susan Drummond APRN [address] [address] [place] [address] PCP - General Internal Medicine 10/05/24
[2025-04-25 23:12] LABS: HSV-1 DNA Negative (Negative); HSV-2 DNA Negative (Negative)
== END 2025-04-23 23:59 | disposition home or self-care (01) ==
LOC: LAB.DROPOF 14:04
PROVIDERS: PCP Nurse Practitioner Family; Visit Provider Nurse Practitioner Family
DX: N94.818 Other vulvodynia (principal)
CPT/HCPCS: 87529